=== PATIENT | female | born 1955 | race Caucasian/White ===

== ENCOUNTER 2020-01-27 01:36 | Observation (INO) | payer OTHER, SELFPAY ==
[2020-01-27] VITALS (10 sets, daily range): BP systolic 95–136; BP diastolic 47–72; PULSE 56–88; RESP 14–97; TEMP 35.4–37; O2SAT 94–100; BMI 61.4; BMI 10.0
--- NOTE | ~2020-01-27 | CT_ITS ---
EXAMINATION: CT brain wo con DATE: 01/27/2020 02:11 INDICATION: Fall and weakness TECHNIQUE: Computed tomography (CT) of the head was performed without intravenous contrast. Sagittal and coronal reconstructions were performed. The mA was adjusted according to patient size. Iterative reconstruction technique was employed. The dose-length product was 605.33 mGy-cm. COMPARISON: None FINDINGS: No fracture. There is minimal scattered white matter hypoattenuation consistent with chronic small ve ssel ischemic disease. No acute intracranial hemorrhage, acute infarction or abnormal extra axial fl uid collection. Ventricles are normal and symmetric. No mass/mass effect. The orbits, paranasal sinus es and mastoid air cells are normal. IMPRESSION: 1. Normal aging brain. No fracture or acute intracranial process. Reviewed, dictated and finalized at location A.
--- NOTE | ~2020-01-27 | US_ITS ---
EXAMINATION: US venous doppler [facility] DATE: 01/27/2020 12:42 INDICATION: Bilateral lower limb edema TECHNIQUE: Rojo scale images without and with compression and Doppler images of the bilateral lower e xtremity veins were obtained. COMPARISON: None. FINDINGS: The right common femoral vein, profunda femoral vein, femoral vein, popliteal vein, peroneal trunk, p osterior tibial veins, and greater saphenous vein are patent. The left common femoral vein, profunda femoral vein, femoral vein, popliteal vein, peroneal trunk, po sterior tibial veins, and greater saphenous vein are patent. IMPRESSION: 1. Patent bilateral lower extremity veins. No evidence of deep venous thrombosis. Reviewed, dictated and finalized at location B. IMPRESSION: 1. Patent bilateral lower extremity veins. No evidence of deep venous thrombosi s.
--- NOTE | ~2020-01-27 | XR_ITS ---
EXAMINATION: XR chest 1V portable DATE: 01/27/2020 02:13 INDICATION: Fall and weakness TECHNIQUE: frontal view of the chest was obtained. COMPARISON: None FINDINGS: Small lung volumes more prominently in the right hemithorax where there is elevation of the right hem idiaphragm and bronchovascular crowding at the gabe. No pulmonary edema, pleural effusion or pneumoth orax. Cardiomegaly. IMPRESSION: 1. Small lung volumes more prominent on the right with elevation of the right hemidiaphragm. Reviewed, dictated and finalized at location A. IMPRESSION: 1. Small lung volumes more prominent on the right with elevation of the right h emidiaphragm.
--- NOTE | ~2020-01-27 | US_ITS ---
EXAMINATION: US right upper quadrant DATE: 01/27/2020 13:58 INDICATION: Elevated liver function tests TECHNIQUE: Multiple grayscale and Doppler ultrasound images of the abdomen were obtained. COMPARISON: None available FINDINGS: Bowel gas obscures visualization of the pancreas. The visualized portions of the pancreas a re unremarkable. The liver demonstrates increased echogenicity, heterogenous echotexture, and decreas ed through transmission. A 1.4 cm cyst is noted in the left hepatic lobe. No surface nodularity. Norm al hepatopetal flow in the main portal vein. There is a stone in the nondistended gallbladder. No per icholecystic fluid or gallbladder wall thickening are identified. The normal common bile duct measure s 6 mm. There was no sonographic Baltazar sign. IMPRESSION: 1. Diffuse hepatic steatosis. 2. Cholelithiasis without evidence cholecystitis. Reviewed, dictated and finalized at location B.
--- NOTE | 2020-01-27 01:39 | ED.WEAKNESS ---
HPI - Weakness General Chief complaint: Extremity Injury, Lower Stated complaint: weakness Time Seen by Provider: 01/27/20 01:39 Source: patient Mode of arrival: EMS Limitations: no limitations History of Present Illness HPI Narrative: A 64 y/o female presents to the ED, via EMS, with c/o generalized weakness. Pt states that the generalized weakness that has been progressively ongoing. Patient states she has been using a walker to walk for the past 6 months. She notes that tonight she was in the shower and became extremely weak and lowered herself to the floor. Pt adds that she was on the floor for an hour and could not get up so she called EMS. She denies HI, LOC, cough, CP, SOB, fever, and chills. Pt normally uses uses a walker to ambulate. She has a PMHx of MS and is prescribed Ocrevus. Dr. Kimbrough is her neurologist. Patient is currently receiving injections for her MS with her last injection December 27, 2019. PERRL the the patient has had swelling of the lower extremities over the past 1 year and this progressively worsened. They also state the patient is had progressive decline of her ambulation over the past year with a walker use for the past 6 months. The recently went on FMLA to try to be home to help the patient at home but states he has been having increased difficulty helping her get around. Stated over the past 3 days weakness to appear to have gotten to the point where the patient has been having difficulty ambulating MD Complaint: generalized weakness Onset (ago): day(s) (3) Duration: constant Location: generalized Associated symptoms: denies other symptoms Review of Systems Review of Systems: All systems reviewed & are unremarkable except as noted in HPI and below Constitutional: Constitutional: Denies chills, Denies fever(s) and Reports weakness (generalized) Cardiovascular: Cardiovascular: Denies chest pain Respiratory: Respiratory: Denies cough and Denies dyspnea Neurologic: Denies other (HI, LOC) [facility] Past Medical History Medical History (Updated 01/27/20 @ 05:31 by Jose Raul Garcia DO) Depression HTN (hypertension) Hypothyroid Multiple sclerosis RLS (restless legs syndrome) Sleep apnea Surgical History Surgical History (Updated 01/27/20 @ 01:50 by Allison Haley) Surgical history unknown Social History Social History (Updated 01/27/20 @ 01:50 by Allison Haley) Smoking status: Unknown if ever smoked Gender identity (if verbalized by the patient): Female Exam Narrative: Exam Narrative: APPEARANCE: No acute distress, nontoxic, resting in bed EYES: EOMI HEENT: Normocephalic, atraumatic, OMM RESPIRATORY: No respiratory distress Clear to auscultation bilaterally with no rhonchi wheezing or rales. CARDIOVASCULAR: Regular rate and rhythm without murmurs rubs or gallops. ABDOMINAL: Soft, nontender, nondistended, no rebound or guarding MUSCULOSKELETAl: Moves all extremities. No clubbing, cyanosis 3+ edema of the bilateral lower extremities bilateral dorsalis pedis pulse 2+ NEURO: Awake and alert x 3. Following commands, speech normal, no focal deficits muscle strength 5 out of 5 in bilateral upper extremities and 4-5 in bilateral lower extremities SKIN:: Warm, dry. No rashes lesions or abrasions bilateral venous stasis dermatitis of the bilateral lower anterior shins PSYCHIATRIC: Normal affect/mood, Course Course Emergency Course: Discussed with patient and . They stated that they had discussed about rehab/group home daily spent recently but the patient has been gone on FMLA to try to help the patient at home. The patient has been going to rehab but secondary to the recent covid pandemic up going to rehab. At this time the patient and agree that the patient is not strong enough to ambulate on her own at home and will likely require placement Unable to get up out of bed on her own in ED Discussed with Dr Falk presentation and work-up. Agrees with admission at th
[2020-01-27 02:01] LABS: Basophils Percent Auto 0.3 % (0.2-1.2); Eosinophils Absolute Auto 0.1 K/mm3 (0-0.3); Eosinophils Percent Auto 1.1 % (0-4.4); Hematocrit 42.7 % (37.0-47.0); Hemoglobin 13.3 g/dL (12.0-15.0); Immature Granulocyte Absolute 0.03 K/mm3 (0.00-0.031); Immature Granulocyte Percent A 0.4 % (0-0.5); Immature Platelet Fraction Pct 5.5 % (0.9-11.2); Lymphocytes Absolute Auto 0.61 K/mm3 (0.9-3.2); Lymphocytes Percent Auto 8.6 % (18.3-44.2); Mean Corpuscular HGB Conc 31.1 g/dl (32-36); Mean Corpuscular Hemoglobin 30.6 pg (26-34); Mean Corpuscular Volume 98.2 fl (80-100); Mean Platelet Volume 10.2 fl (7.4-10.4); Monocytes Absolute Auto 0.4 K/mm3 (0.1-0.6); Monocytes Percent Auto 6.1 % (2.6-8.5); Neutrophils Absolute Auto 5.9 K/mm3 (1.3-6.7); Neutrophils Percent Auto 83.5 % (45.5-73.1); Platelet Count Result 143 k/mm3 (150-375); Red Blood Count 4.35 M/mm3 (4.2-5.4); Red Cell Distribution Width 16.5 % (11.5-14.5); White Blood Count 7.1 K/mm3 (4.5-10.0)
[2020-01-27 02:10] LABS: Alanine Aminotransferase 126 U/L (4-35); Albumin Level 4.2 g/dL (3.5-5.1); Alkaline Phosphatase 110 U/L (38-126); Aspartate Amino Transferase 81 U/L (14-36); Bilirubin,Total 0.4 mg/dL (0.2-1.3); Blood Urea Nitrogen 28 mg/dL (7-17); Calcium 9.2 mg/dL (8.4-10.2); Carbon Dioxide 33 mmol/L (22-30); Chloride 97 mmol/L (98-107); Estimated CRCL calculation 95 ml/min; Estimated Glomerular Filt Rate > 60; Glucose 108 mg/dL (65-105); Potassium 4.7 mmol/L (3.4-5.0); Sodium 137 mmol/L (137-145)
[2020-01-27 02:11] LABS: Partial Thromboplastin Time 27.5 SECONDS (22.3-36.8); Prothrombin Time 12.7 Seconds (11.1-14.7)
--- NOTE | 2020-01-27 03:07 | PC.NURSE ---
Assumed care of pt at this time. report from SULLY Miner
[2020-01-27 03:24] LABS: Add Urine Microscopic? YES; Appearance Urine Clear (Clear); Bilirubin Urine Negative (Negative); Blood Urine Negative (Negative); Color Urine Yellow (Yellow); Glucose Urine UA Negative (Negative); Ketones Urine Trace mg/dL (Negative); Leukocyte Esterase Ur Negative LEU/UL (Negative); Mucus Urine Rare /lpf; Nitrate Urine Negative (Negative); Protein Urine 1+ mg/dL (Negative); RBC Urine 0-2 /hpf (0-2); Squamous Epithelial Cell Urine Rare /hpf (Few); WBC Urine 0-3 /hpf
[2020-01-27 04:38] LABS: NT Pro B Type Natriuretic Pept 162 PG/ML (5-100)
--- NOTE | 2020-01-27 04:56 | PC.NURSE ---
Called pt's family member to pickup driver pt states she is on her way.
--- NOTE | 2020-01-27 06:34 | ADMGEN ---
This patient, Tonia Squires, was admitted to Medical Room 347-. Patient/family oriented to hospital policies and general routines including ID bracelet, bed and alarms, visiting hours, pain management, procedures, bathroom and other care routines, personal items, smoking policy, room service/diet, and visiting hours. Valuables list has been completed. Information on how to activate the Rapid Response Team has been discussed. Patient/Family are encouraged to report perceived risks to care and to ask questions if they do not understand what they are told or what they should do.
--- NOTE | 2020-01-27 11:02 | PM.IMHP ---
H&P: HPI History of Present Illness Chief complaint: gait instability,multiple sclerosis Narrative: Tonia Squires is a 64 year old female with PMH significant for secondary progressive multiple sclerosis, morbid obesity, depression, hypertension, hypothyroidism, restless leg syndrome, ROGE, and chronic lower extremity edema. She follows with Dr. Kimbrough, neurologist, for her MS. She is on Ocrevus for her MS. Her last injection was 12/27/19 and she is due for her next injection 06/26/20. She reports progressive weakness over the past 6 months which has required her to use a walker. She notes that her weakness has increased in the past days. She also uses a wheelchair occasionally at home. She reports that she was in the shower and became extremely weak so she lowered herself to the floor slowly. She felt to weak to get up so she and her called EMS. She denies loss of consciousness, head injury, or any other injuries. She denies any traumatic wounds. She denies chest pain, palpitations, cough, SOB, headache, lateralizing weakness, and vision changes. She denies recent sick contacts or travel. She was going to outpatient PT and her was using FMLA to care for her but she reports that he is having difficulty caring for her increasing needs due to her weakness. She also endorses progressive lower extremity edema over the past year due to her reduced mobility. She is prescribed lasix 40mg QD for her edema but reports that she is not taking her lasix as prescribed and only takes it 2x per week. She does not wear compression stockings and keeps her legs in the dependent position frequently. She denies PND and orthopnea. She reports that she uses her CPAP 4x/week. Review of Systems Review of Systems: Narrative: Constitutional: Denies fever, chills, fatigue, and appetite change. Denies recent sick contacts. Eyes: Denies vision change. No additional eye complaints. ENT: Denies change in hearing, nasal congestion, dysphagia, odynophagia, and sore throat. Cardiovascular: Denies palpitations and chest pain. Denies PND and orthopnea. Denies dyspnea on exertion. Respiratory: Denies cough and shortness of breath. Gastrointestinal: Denies abdominal pain, nausea, and vomiting. Denies diarrhea and constipation. Genitourinary: Denies dysuria, frequency, urgency, and hesitancy. Musculoskeletal: Reports generalized lower extremity weakness with her MS. Denies joint pain or swelling. Reports lower extremity edema. Skin: Reports small wound on the left lateral calf. Neurologic: Denies focal weakness, paresthesias, confusion, and speech change. Psychiatric: Denies mood change. Reports depression and takes bupropion for this. Hematologic: Denies easy bruising and bleeding. All systems reviewed & are unremarkable except as noted in HPI and below PMFSH Past Medical History Medical History (Updated 01/27/20 @ 12:50 by Dory Martins PA-C) Depression HTN (hypertension) Hypothyroid Multiple sclerosis RLS (restless legs syndrome) Sleep apnea Surgical History Surgical History (Updated 01/27/20 @ 13:06 by Dory Martins PA-C) H/O section History of tonsillectomy Family History Family History (Updated 01/27/20 @ 11:36 by Dory Martins PA-C) Mother Lung cancer Father Lung cancer Social History Social History (Updated 01/27/20 @ 01:50 by Allison Haley) Smoking status: Never smoker Second hand tobacco smoke exposure: No Alcohol intake: never Substance use: never Gender identity (if verbalized by the patient): Female Spiritual care concerns: No Agree to blood products: Yes Comments Mrs. Squires lives at home with her Dank. She reports that he has been her primary meat and poultry inspector. She reports that she would like him to be her designated POA. She wishes to be a full code. She used to work in pathology at [employer] Home Medications and Allergies Home Medications Medication Instructions Recorded Con
[2020-01-27] MEDS: buPROPion HCL XL (24 HR) 150 MG TABCR PO (12:58)
[2020-01-27] MEDS: FUROSEMIDE 40 MG TABLET PO (12:59)
[2020-01-27] MEDS: LEVOTHYROXINE SODIUM 100 MCG TABLET 200 MCG PO (13:01)
[2020-01-27] MEDS: ENOXAPARIN 40 MG/0.4 ML SYRINGE SUB-Q (22:22)
[2020-01-27] MEDS: PRAMIPEXOLE 1 MG TABLET PO (22:23)
[2020-01-28 05:51] LABS: Basophils Percent Auto 0.2 % (0.2-1.2); Blood Urea Nitrogen 22 mg/dL (7-17); Calcium 8.8 mg/dL (8.4-10.2); Carbon Dioxide 33 mmol/L (22-30); Chloride 98 mmol/L (98-107); Eosinophils Absolute Auto 0.2 K/mm3 (0-0.3); Eosinophils Percent Auto 2.9 % (0-4.4); Estimated CRCL calculation 106 ml/min; Estimated Glomerular Filt Rate > 60; Glucose 104 mg/dL (65-105); Hematocrit 38.3 % (37.0-47.0); Hemoglobin 11.7 g/dL (12.0-15.0); Immature Granulocyte Absolute 0.03 K/mm3 (0.00-0.031); Immature Granulocyte Percent A 0.5 % (0-0.5); Immature Platelet Fraction Pct 6.2 % (0.9-11.2); Lymphocytes Absolute Auto 0.84 K/mm3 (0.9-3.2); Lymphocytes Percent Auto 15.1 % (18.3-44.2); Mean Corpuscular HGB Conc 30.5 g/dl (32-36); Mean Corpuscular Hemoglobin 30.5 pg (26-34); Mean Platelet Volume 11.1 fl (7.4-10.4); Monocytes Absolute Auto 0.4 K/mm3 (0.1-0.6); Monocytes Percent Auto 7.6 % (2.6-8.5); Neutrophils Absolute Auto 4.1 K/mm3 (1.3-6.7); Neutrophils Percent Auto 73.7 % (45.5-73.1); Platelet Count Result 130 k/mm3 (150-375); Potassium 4.2 mmol/L (3.4-5.0); Red Blood Count 3.83 M/mm3 (4.2-5.4); Red Cell Distribution Width 17.5 % (11.5-14.5); Sodium 135 mmol/L (137-145); White Blood Count 5.6 K/mm3 (4.5-10.0)
[2020-01-28 06:00] VITALS: BP 133/64; PULSE 66; RESP 20; TEMP 36.1; O2SAT 95
[2020-01-28 06:41] LABS: Hepatitis B Surface Antigen Negative (Negative)
[2020-01-28 06:47] LABS: HAV RESULT Negative (Negative); Hepatitis B Core IgM Result Negative (Negative)
[2020-01-28] MEDS: LEVOTHYROXINE SODIUM 100 MCG TABLET 200 MCG PO (06:54)
[2020-01-28 06:58] LABS: Hepatitis C Virus Antibody Negative (Negative)
[2020-01-28 08:31] LABS: Alanine Aminotransferase 99 U/L (4-35); Albumin Level 3.4 g/dL (3.5-5.1); Alkaline Phosphatase 85 U/L (38-126); Aspartate Amino Transferase 54 U/L (14-36); Bilirubin,Total 0.2 mg/dL (0.2-1.3); Blood Urea Nitrogen 22 mg/dL (7-17); Carbon Dioxide 35 mmol/L (22-30); Chloride 99 mmol/L (98-107); Estimated CRCL calculation 106 ml/min; Estimated Glomerular Filt Rate > 60; Glucose 107 mg/dL (65-105); Potassium 4.2 mmol/L (3.4-5.0); Sodium 134 mmol/L (137-145)
[2020-01-28] MEDS: FUROSEMIDE 40 MG TABLET PO (09:17)
[2020-01-28] MEDS: buPROPion HCL XL (24 HR) 150 MG TABCR PO (09:17)
[2020-01-28] MEDS: hydroCHLOROthiazide 25 MG TABLET PO (09:18)
[2020-01-28] MEDS: PRAMIPEXOLE 1 MG TABLET PO ×2 (11:39→22:37)
[2020-01-28 13:40] VITALS: BMI 11.0
[2020-01-28 13:45] VITALS: BMI 11.0
[2020-01-28 14:00] VITALS: BP 124/63; PULSE 59; RESP 14; TEMP 36.5; O2SAT 100
[2020-01-28] MEDS: FUROSEMIDE INJ 40 MG/4 ML VIAL 20 MG IV PUSH (15:50)
--- NOTE | 2020-01-28 16:30 | PM.IMPN ---
Progress Note: A&P Assessment and Plan (1) Secondary progressive multiple sclerosis: Code(s): G35 - Multiple sclerosis Status: Acute Assessment and Plan: The pt is established with Dr. Kimbrough. She is on ocrevus injections. Her most recent was 12/27 and her next dose is due 06/26. She reports that her weakness has progressed over the past 6 months and it is becoming difficult for her to care for her. She and her have expressed interest in rehab placement. I discussed her case with Dr. Kimbrough. She does not recommend any additional treatment for her MS including no steroids. Continue follow-up with Dr. Kimbrough outpatient Will continue to work with case management on post-acute discharge PT/OT evaluation (2) Transaminitis: Code(s): R74.0 - Nonspecific elevation of levels of transaminase and lactic acid dehydrogenase [LDH] Status: Acute Assessment and Plan: Pt had elevated AST 54 and ALT 99. Discussed with Dr. Kimbrough, her neurologist, as Ocrevus can cause elevated LFTs. LFTs were normal 12/04 prior to her visit with Dr. Kimbrough. RUQ US revealed diffuse hepatic steatosis and cholelithiasis without cholecystitis. AST and ALT are trending down. She is completely asymptomatic. I suspect nonalcoholic fatty liver disease. AST:ALT ratio is <1. Hepatitis panel is negative. BMI is 61. Recommend lifestyle intervention with weight loss and diet changes as well as better control of hypothyroidism Pt will benefit from platform beater consult Will trend (3) Bilateral edema of lower extremity: Code(s): R60.0 - Localized edema Status: Acute Assessment and Plan: Suspect lymphedema with possible component of chronic venous insufficiency due to morbid obesity and inactivity with dependency. Pt has been noncompliant with her lasix which was prescribed for her leg swelling. Venous doppler was negative for DVT. I suspect that her hypothyroidism is also contributing. Continue compression and elevation Continue PO lasix, will give one time IV dose today. (4) Gait instability: Code(s): R26.81 - Unsteadiness on feet Status: Acute Assessment and Plan: Suspect that this is due to progression of her MS. She reports this has progressed over the past 6 months. She uses a walker and occasionally uses a wheelchair at home for her mobility. PT/OT Pt has expressed interest in rehab placement because it is becoming difficult for her to care for her. Will continue to work with case management on this. (5) Sleep apnea: Code(s): G47.30 - Sleep apnea, unspecified Status: Acute Assessment and Plan: Will order CPAP, titrate to home settings (6) Hypothyroid: Code(s): E03.9 - Hypothyroidism, unspecified Status: Acute Assessment and Plan: TSH 25.1 and free T4 0.4. I had a long discussion with the pt. She has not been taking her levothyroxine. She states that she may take it one to two times per week if she remembers. I will not adjust her dose at this time. I suspect that her hypothyroidism is contributing to her weight gain, weakness, swelling, and edema. Continue levothyroxine 200mcg which pt has not been taking Repeat TSH w/reflex fT4 in 6 weeks outpatient (7) HTN (hypertension): Code(s): I10 - Essential (primary) hypertension Status: Acute Assessment and Plan: Pressures reviewed and at target. Continue HCTZ (8) Depression: Code(s): F32.9 - Major depressive disorder, single episode, unspecified Status: Acute Assessment and Plan: Continue bupropion, discussed with Dr. Kimbrough and the pt is actually taking 300mg PO QD (9) RLS (restless legs syndrome): Code(s): G25.81 - Restless legs syndrome Status: Acute Assessment and Plan: Continue pramipexole (10) DVT prophylaxis: Code(s): Z29.9 - Encounter for prophylactic m
[2020-01-28 21:43] VITALS: BP 122/57; PULSE 71; RESP 18; TEMP 35.9; O2SAT 93
[2020-01-28] MEDS: ENOXAPARIN 40 MG/0.4 ML SYRINGE SUB-Q (21:45)
[2020-01-28 22:30] VITALS: RESP 21
[2020-01-29 06:00] VITALS: BP 139/75; PULSE 95; RESP 18; TEMP 36.1; O2SAT 98
[2020-01-29 06:03] LABS: Hematocrit 39.8 % (37.0-47.0); Hemoglobin 12.4 g/dL (12.0-15.0); Mean Corpuscular HGB Conc 31.2 g/dl (32-36); Mean Corpuscular Hemoglobin 30.6 pg (26-34); Mean Corpuscular Volume 98.3 fl (80-100); Mean Platelet Volume 11.2 fl (7.4-10.4); Platelet Count Result 122 k/mm3 (150-375); Red Blood Count 4.05 M/mm3 (4.2-5.4); Red Cell Distribution Width 17.3 % (11.5-14.5); White Blood Count 5.8 K/mm3 (4.5-10.0)
[2020-01-29] MEDS: LEVOTHYROXINE SODIUM 100 MCG TABLET 200 MCG PO (06:12)
[2020-01-29 06:15] LABS: Alanine Aminotransferase 92 U/L (4-35); Albumin Level 3.7 g/dL (3.5-5.1); Alkaline Phosphatase 96 U/L (38-126); Aspartate Amino Transferase 52 U/L (14-36); Bilirubin,Total 0.4 mg/dL (0.2-1.3); Blood Urea Nitrogen 20 mg/dL (7-17); Calcium 8.9 mg/dL (8.4-10.2); Carbon Dioxide 35 mmol/L (22-30); Chloride 95 mmol/L (98-107); Estimated CRCL calculation 84 ml/min; Estimated Glomerular Filt Rate > 60; Glucose 109 mg/dL (65-105); Magnesium 1.8 mg/dL (1.6-2.3); Potassium 4.2 mmol/L (3.4-5.0); Sodium 135 mmol/L (137-145)
[2020-01-29 08:00] VITALS: BP 132/77; PULSE 69
[2020-01-29] MEDS: FUROSEMIDE 40 MG TABLET PO (08:17)
[2020-01-29] MEDS: hydroCHLOROthiazide 25 MG TABLET PO (08:17)
[2020-01-29] MEDS: buPROPion HCL XL (24 HR) 150 MG TABCR 300 MG PO (09:47)
[2020-01-29] MEDS: PRAMIPEXOLE 1 MG TABLET PO (09:57)
--- NOTE | 2020-01-29 13:35 | PCOTNOTE ---
Pt eating lunch at this time and declined therapy. Will re-attempt at a later time.
--- NOTE | 2020-01-29 13:53 | PM.DS ---
DS: Diagnosis Admitting Diagnosis Admitting Diagnosis: Multiple sclerosis Discharge Diagnosis (1) Secondary progressive multiple sclerosis: Code(s): G35 - Multiple sclerosis Status: Chronic (2) Transaminitis: Code(s): R74.0 - Nonspecific elevation of levels of transaminase and lactic acid dehydrogenase [LDH] Status: Acute Assessment and Plan: (3) Bilateral edema of lower extremity: Code(s): R60.0 - Localized edema Status: Chronic (4) Gait instability: Code(s): R26.81 - Unsteadiness on feet Status: Chronic (5) Sleep apnea: Code(s): G47.30 - Sleep apnea, unspecified Status: Chronic (6) Hypothyroid: Code(s): E03.9 - Hypothyroidism, unspecified Status: Chronic (7) HTN (hypertension): Code(s): I10 - Essential (primary) hypertension Status: Acute (8) Depression: Code(s): F32.9 - Major depressive disorder, single episode, unspecified Status: Acute (9) RLS (restless legs syndrome): Code(s): G25.81 - Restless legs syndrome Status: Chronic DS: Summary Hospital Course Reason for hospitalization: Mrs. Squires is a 64 y.o. female with PMH significant for secondary progressive multiple sclerosis, hypothyroidism, depression, hypertension, restless leg syndrome, morbid obesity, ROGE, and chronic lower extremity edema who presented to the ED with c/o generalized weakness. She called EMS after she fell while her was trying to transfer her. She reported no injuries from her fall and she was gradually lowered to the floor with no LOC or other injuries including no head injury. She states that her weakness has been progressively declining over the past 6 months and it has become difficult for her to ambulate and for her to care for her. Initial workup in the ED revealed unremarkable CBC, CMP with AST 81, ALT 126, ALP 110, CT brain with no acute intracranial abnormality, unremarkable UA, and CXR without acute cardiopulmonary process. She was admitted to the hospitalist service as it was felt that she would require rehab placement since her could no longer care for her with her progressive weakness from her MS. She follows with Dr. Kimbrough, neurologist, for her MS. I called to speak with Dr. Kimbrough about her case as I was concerned about her transaminitis since she is on Ocrevus injections. Her LFTs were normal prior to her last Ocrevus injection in 12/2019. Hepatitis panel was negative, RUQ US revealed diffuse hepatic steatosis with cholelithiasis and no evidence of cholecystitis. Her LFT elevation was felt to be related to nonalcoholic fatty liver disease and I have recommended she have a repeat CMP in 1 week with her PCP to check her LFTs.. Her TSH was significantly elevated at 25 and fT4 was low at 0.4. She endorsed that she was no longer taking her levothyroxine. I spent extensive time talking to her about the importance of taking her levothyroxine to improve her metabolic processes. I discussed that her noncomplaince with levothyroxine is likely contributing to her weakness, leg swelling, weight gain, and depression and that it will take 6 weeks for her levothyroxine to reach steady state. She will need repeat TSH w/reflex to fT4 in 4-6 weeks with her PCP as well. I did not want to adjust her dose of levothyroxine since she was not taking the medication. She also had pitting lower extremity edema endorsed non-compliance with lasix which she was prescribed for her edema. Venous doppler was negative for DVT. She received IV lasix with improvement in her swelling. I encouraged leg elevation and compression stockings as well and discussed that it is very important that she comply with lasix. She was encouraged to continue her CPAP for her ROGE but she did report noncompliance with this as well. I discussed the effects of non-compliance with CPAP therapy. She was encouraged to follow-up outpatient with Dr. Kimbrough for her multiple sclero
[2020-01-29 14:00] VITALS: BP 127/81; PULSE 66; RESP 18; TEMP 35.6; O2SAT 93
--- NOTE | 2020-01-29 14:26 | PCOTNOTE ---
Patient refused treatment after second attempt due to impending discharge, and Pt expressing that she doesn't wish to participate in therapy any longer.
[2020-01-29 15:42] VITALS: BMI 11.0
[2020-01-31 03:15] LABS: GGT 49 U/L (3-65)
== END 2020-01-29 17:16 ==
LOC: ANHED 05:47 → ANH3MED 05:48
PROVIDERS: Physician Assistant; Admitting Provider Internal Medicine; Emergency Provider Emergency Medicine; Visit Provider Internal Medicine
DX: G35 Multiple sclerosis (principal); R74.0 Nonspecific elevation of levels of transaminase and lactic acid dehydrogenase [LDH]; R60.0 Localized edema; R26.81 Unsteadiness on feet; G47.33 Obstructive sleep apnea (adult) (pediatric); E03.9 Hypothyroidism, unspecified; I10 Essential (primary) hypertension; F32.9 Major depressive disorder, single episode, unspecified; G25.81 Restless legs syndrome; E66.01 Morbid (severe) obesity due to excess calories; Z68.44 Body mass index [BMI] 60.0-69.9, adult; K76.0 Fatty (change of) liver, not elsewhere classified; K80.20 Calculus of gallbladder without cholecystitis without obstruction; W19.XXXA Unspecified fall, initial encounter; Z91.14 Patient's other noncompliance with medication regimen; Z91.19 Patient's noncompliance with other medical treatment and regimen; Z99.89 Dependence on other enabling machines and devices; Z28.21 Immunization not carried out because of patient refusal
CPT/HCPCS: 36415; 51701; 70450; 71045; 76705; 80048; 80053; 80074; 81001; 82977; 83735; 83880; 84439; 84443; 85025; 85027; 85055; 85610; 85730; 93970; 96374; 97110; 97161; 97165; 97530; 97535; 99285; A9270; G0378; J1650; J1940

== ENCOUNTER 2021-07-21 18:29 | Inpatient (IN) | payer MEDICARE, SELFPAY ==
--- NOTE | ~2021-07-21 | CT_ITS ---
EXAMINATION: CT brain wo con DATE: 07/21/2021 19:58 INDICATION: Confusion, change in mental status. TECHNIQUE: Computed tomography (CT) of the head was performed without intravenous contrast. The mA wa s adjusted according to patient size. Iterative reconstruction technique was employed. Exam dose: 68 1.00 mGy-cm total exam DLP. COMPARISON: 01/27/2020 CT brain FINDINGS: No intracranial mass lesion or hemorrhage or cerebrovascular accident is detected. No midli ne shift or mass effect. No subdural or epidural hematoma. Normal ventricular size. Mild atherosclero tic cerebral artery calcification. No orbital mass lesion. No skull fracture or bone destruction. Included paranasal sinuses and mastoid air cells are unremarka ble. IMPRESSION: Cerebral atherosclerosis; no acute intracranial finding Reviewed, dictated and finalized at [facility]. Reviewed, dictated and finalized at location [facility].
--- NOTE | ~2021-07-21 | MR_ITS ---
EXAMINATION: MR brain/brain stem wo/w con DATE: 07/22/2021 11:56 INDICATION: Mental status change. TECHNIQUE: Magnetic resonance imaging (MRI) of the brain and brainstem was performed without and with 20 mL MultiHance intravenous contrast. Sequences included sagittal and axial T1-weighted FSE, axial diffusion-weighted FS EPI, axial T2*-weighted GRE, axial T2-weighted FLAIR Propeller, and axial T2-we ighted Propeller. Postcontrast sequences included axial, sagittal, and coronal T1-weighted FSE. Appar ent diffusion coefficient (ADC) maps were created. COMPARISON: Head CT 07/21/2021 FINDINGS: There are scattered areas of nonspecific increased T2-weighted signal intensity in the cere bral white matter and zay. There is no intracranial hemorrhage, acute infarction, or abnormal intrac ranial mass lesion. The ventricles are normal in size. There is mild mucosal thickening in the parana shireen sinuses. The orbits are normal. The mastoid air cells are normal. IMPRESSION: 1. Mild nonspecific cerebral white matter disease and pontine disease, which likely represents chroni c small vessel ischemic disease. Reviewed, dictated and finalized at location [facility]. IMPRESSION: 1. Mild nonspecific cerebral white matter disease and pontine disease, which savanah burr represents chronic small vessel ischemic disease.
--- NOTE | ~2021-07-21 | XR_ITS ---
XR chest 1V portable DATE: 07/21/2021 20:13 INDICATION: Transient alteration of awareness. History of hypertension. TECHNIQUE: Portable supine AP view on 07/21/2021 at 2009 hours COMPARISON: 01/27/2020 AP portable chest FINDINGS: Cardiomegaly. No pulmonary infiltrate or consolidation, pleural effusion or pulmonary vascular congestion or pneumo thorax is evident. IMPRESSION: Cardiomegaly Reviewed, dictated and finalized at location [facility]. IMPRESSION: Cardiomegaly
--- NOTE | ~2021-07-21 | US_ITS ---
EXAMINATION:US venous doppler LE BI INDICATION:Lower extremity edema TECHNIQUE: Multiple grayscale, color flow and Doppler images of the lower extremity deep venous syste ms were obtained and reviewed. COMPARISON:Ultrasound dated 01/27/2020 FINDINGS: The common femoral, superficial femoral and popliteal veins demonstrate normal respiratory variation, augmentation and compressibility. Color flow is also seen within the posterior tibial, pe roneal, greater saphenous and profunda veins. IMPRESSION: 1: No lower extremity deep venous thrombosis. Reviewed, dictated and finalized at location A.
[2021-07-21 18:31] VITALS: BP 119/68; PULSE 50; RESP 20; TEMP 36.1; O2SAT 95
--- NOTE | 2021-07-21 18:40 | ECG_ITS ---
Measurements Intervals [place] Rate: 86 P: [place]: 0 QRS: -16 QRSD: 144 T: 58 QT: 454 QTc: 544 Interpretive Statements ATRIAL FIBRILLATION RIGHT BUNDLE BRANCH BLOCK ABNORMAL ECG Electronically Signed On 07-22-2021 10:34:54 CDT by Miles Saeed D.O.
[2021-07-21 19:39] LABS: Alveolar/Arterial O2 Gradient 8.1 mmHg; Base Excess ABG 4.7 mEq/l (+/-2.0); Fractional Inspired Oxygen 21 %; HCO3 ABG 31.6 mEq/l (22.0-26.0); Oxygen Content ABG 16.6 %vol (16.0-22.0); Oxygen Saturation ABG 93.7 % (95.0-100.0); PCO2 ABG 57.7 mmHg (35.0-45.0); PO2 ABG 72.5 mmHg (80.0-100.0); PO2 FiO2 Ratio Arterial Blood 3.45 %; Total Hemoglobin 12.8 g/dL (12.0-18.0); pH ABG 7.357 (7.350-7.450)
[2021-07-21 19:41] LABS: Device ROOM AIR; Modified Allen's Test Pass; Site Drawn RIGHT RADIAL
[2021-07-21 19:51] LABS: Basophils Percent Auto 0.2 % (0.2-1.2); Eosinophils Absolute Auto 0.1 K/mm3 (0-0.3); Eosinophils Percent Auto 1.4 % (0-4.4); Hematocrit 38.9 % (37.0-47.0); Immature Granulocyte Absolute 0.03 K/mm3 (0.00-0.031); Immature Granulocyte Percent A 0.5 % (0-0.5); Immature Platelet Fraction Pct 9.8 % (0.9-11.2); Lymphocytes Absolute Auto 0.46 K/mm3 (0.9-3.2); Lymphocytes Percent Auto 6.9 % (18.3-44.2); Mean Corpuscular HGB Conc 30.8 g/dl (32-36); Mean Corpuscular Hemoglobin 29.6 pg (26-34); Mean Platelet Volume 10.8 fl (7.4-10.4); Monocytes Absolute Auto 0.3 K/mm3 (0.1-0.6); Neutrophils Absolute Auto 5.7 K/mm3 (1.3-6.7); Platelet Count Result 79 k/mm3 (150-375); Red Blood Count 4.05 M/mm3 (4.2-5.4); Red Cell Distribution Width 16.5 % (11.5-14.5); White Blood Count 6.6 K/mm3 (4.5-10.0)
[2021-07-21 19:59] LABS: Lactic Acid Reflex 1.3 mmol/L (0.7-2.1)
[2021-07-21 20:00] LABS: Alanine Aminotransferase 123 U/L (4-35); Albumin Level 4.1 g/dL (3.5-5.1); Alkaline Phosphatase 120 U/L (38-126); Anion Gap 9 mmol/L (8-16); Aspartate Amino Transferase 69 U/L (14-36); Bilirubin,Total 0.6 mg/dL (0.2-1.3); Blood Urea Nitrogen 42 mg/dL (7-17); Calcium 9.8 mg/dL (8.4-10.2); Carbon Dioxide 33 mmol/L (22-30); Chloride 97 mmol/L (98-107); Estimated CRCL calculation 63 ml/min; Estimated Glomerular Filt Rate 50; Glucose 118 mg/dL (65-110); Potassium 4.1 mmol/L (3.4-5.0); Sodium 139 mmol/L (137-145)
[2021-07-21] MEDS: SODIUM CHLORIDE 0.9% IV 1,000 ML 999 ML IV CONT (20:00)
--- NOTE | 2021-07-21 20:19 | ED.GENADULT ---
HPI - General Adult General Chief complaint: Altered Mental Status Stated complaint: combative Time Seen by Provider: 07/21/21 19:01 History of Present Illness HPI narrative: Patient is a 65-year-old female presents the emergency department with chief complaint of altered mental status. Per the patient's family they have noticed over the last several weeks she has been acting a little strange they noticed that she has been more drowsy and also noticed that she has been having periods where she has been almost combative and also confused and tearing up things in the house. The patient has not had a fever not had a cough the report that she has history of MS and is followed by neurologist at [facility]. The patient is currently not receiving any infusions or injectables for her MS as they noticed the last time that she had a injection therapy she stopped walking and required wheelchair use after that. Today they called EMS this morning after they noticed for 2 days her speech has been more slurred she was initially evaluated by EMS this morning of which she refused transport and later this afternoon they were able to convince her to come to the hospital for evaluation Related Data Home Medications Medication Instructions Recorded Confirmed furosemide 40 mg PO DAILY 01/27/20 07/21/21 hydrochlorothiazide 25 mg PO DAILY 01/27/20 07/21/21 levothyroxine 200 mcg PO DAILY 01/27/20 07/21/21 pramipexole 1 mg PO USEASDIRECTD 01/27/20 07/21/21 escitalopram oxalate 20 mg PO DAILY 07/21/21 07/21/21 rivaroxaban [Xarelto] 2.5 mg PO DAILY 07/21/21 07/21/21 tizanidine 4 mg PO BID 07/21/21 07/21/21 tizanidine 8 mg PO HS 07/21/21 07/21/21 Allergies Allergy/AdvReac Type Severity Reaction Status Date / Time No Known Allergies Allergy Verified 07/21/21 18:41 Review of Systems Review of Systems: A 10 system review of systems was completed on the patient and is negative except for what is stated in the HPI. Nursing and ancillary documentation was reviewed. [facility] Past Medical History Medical History Depression HTN (hypertension) Hypothyroid Multiple sclerosis RLS (restless legs syndrome) Sleep apnea Surgical History Surgical History H/O section History of tonsillectomy Family History Family History Mother Lung cancer Father Lung cancer Social History Social History Smoking status: Never smoker Second hand tobacco smoke exposure: No Alcohol intake: never Substance use: never Gender identity (if verbalized by the patient): Female Spiritual care concerns: No Agree to blood products: Yes Exam Narrative: GENERAL: Well-appearing, well-nourished, and in no acute distress. HEAD: Normocephalic, atraumatic. EYES: PERRLA and EOMI. ENT: Nares clear, no rhinorrhea or epistaxis. Mucous membranes moist. NECK: Supple. CHEST: Clear to auscultation. No respiratory distress. HEART: Regular rate and rhythm. No murmur heard. Normal peripheral pulses. ABDOMEN: Soft, nontender, nondistended, normal active bowel sounds. EXTREMITIES: Normal range of motion. No edema. SKIN: Warm, dry, no rash. NEURO: No focal deficits. Alert and oriented x3. PSYCH: Normal mood and affect. Course Vital Signs Vital signs: Vital Signs Temperature 36.1 C L 07/21/21 18:31 Pulse Rate 50 L 07/21/21 18:31 Respiratory Rate 20 07/21/21 18:31 Blood Pressure 119/68 07/21/21 18:31 Pulse Oximetry 95 07/21/21 18:31 Temperature 36.1 C L 07/21/21 18:31 Pulse Rate 50 L 07/21/21 18:31 Respiratory Rate 20 07/21/21 18:31 Blood Pressure 119/68 07/21/21 18:31 Pulse Oximetry 95 07/21/21 18:31 Medical Decision Making Vital Signs Vital Signs: Vital Signs
[2021-07-21 20:26] LABS: Troponin I < 0.012 ng/mL (0.000-0.034)
[2021-07-21 21:30] LABS: Add Urine Microscopic? YES; Appearance Urine Clear (Clear); Bilirubin Urine Negative (Negative); Blood Urine Negative (Negative); Color Urine Yellow (Yellow); Glucose Urine UA Negative (Negative); Ketones Urine Negative (Negative); Leukocyte Esterase Ur Trace LEU/UL (Negative); Mucus Urine Rare /lpf; Nitrate Urine Negative (Negative); Protein Urine 1+ mg/dL (Negative); RBC Urine 0-2 /hpf (0-2); Specific Grav Ur 1.027 (1.001-1.035); Squamous Epithelial Cell Urine Moderate /hpf (Few)
--- NOTE | 2021-07-21 22:01 | PM.IMHP ---
H&P: HPI History of Present Illness Date/Time: 07/21/21 22:01 Chief Complaint: Altered mental status Narrative: This is a 65-year-old female with past medical history significant for MS, patient is currently wheelchair-bound and up with assist, obstructive sleep apnea on CPAP at nighttime. Patient was brought to the emergency room after her have noticed a change in her mentation this has been going on and off for the last 2 weeks she has been having hallucinations but has been worse today she wears her CPAP mask on an off, her also noticed rigors but did not check her temperature, notice that her appetite has not been good as of the last 3 days or so, was very confused today and hallucinating, then he decided to bring her to the emergency room. Preliminary workup in emergency room for the most part was unrevealing. CT of the head with no acute abnormalities. BMP and CBC at patient's baseline an ABG showed a pH of 7.35 with a pCO2 57 PO2 of 72. A chest x-ray was significant for cardiomegaly. At the time of my visit patient was able to answer some questions. Patient has been placed in observation. Review of Systems Review of Systems: ROS unobtainable: Yes unobtainable due to mental status (Confusion) PMFSH Past Medical History Medical History Depression HTN (hypertension) Hypothyroid Multiple sclerosis RLS (restless legs syndrome) Sleep apnea Surgical History Surgical History H/O section History of tonsillectomy Family History Family History Mother Lung cancer Father Lung cancer Social History Social History Smoking status: Never smoker Second hand tobacco smoke exposure: No Alcohol intake: never Substance use: never Gender identity (if verbalized by the patient): Female Spiritual care concerns: No Agree to blood products: Yes Meds Home Medications and Allergies Home Medications Medication Instructions Recorded Confirmed Type furosemide 40 mg PO DAILY 01/27/20 07/22/21 History hydrochlorothiazide 25 mg PO DAILY 01/27/20 07/22/21 History levothyroxine 200 mcg PO DAILY 01/27/20 07/22/21 History pramipexole 1 mg PO USEASDIRECTD 01/27/20 07/22/21 History escitalopram oxalate 20 mg PO DAILY 07/21/21 07/22/21 History rivaroxaban [Xarelto] 2.5 mg PO DAILY 07/21/21 07/22/21 History tizanidine 4 mg PO BID 07/21/21 07/22/21 History tizanidine 8 mg PO HS 07/21/21 07/22/21 History Allergies Allergy/AdvReac Type Severity Reaction Status Date / Time No Known Allergies Allergy Verified 07/21/21 23:58 Vital Signs Vital Signs - 24 hr 07/21/21 18:31 Temperature 97.0 F L Pulse Rate 50 L Respiratory Rate 20 Blood Pressure 119/68 Pulse Oximetry 95 Exam Const: General: comfortable, no acute distress, well developed, confusion and ill appearing chronically Nutritional Appearance: obese morbidly obese Orientation/consciousness: oriented to person and oriented to place HENMT: Head: normal to inspection, normocephalic and atraumatic Ears: hearing grossly normal bilaterally General nose exam: Normal external nose present Face and sinus: normal facial exam Eyes: General: appearance normal, both eyes and all related structures Alignment and Position: alignment normal Sclera: sclerae normal Pupils: Equal, round and reactive pupils present EOM: EOMs intact bilaterally Neck: Neck: normal visual inspection, full ROM, no lymphadenopathy, supple and no JVD Thyroid: thyroid normal Lymphatic: no lymphadenopathy noted Resp: Effort & Inspection: normal respiratory effort and able to speak in complete sentences Auscultation: clear to auscultation bilaterally, no crackles, no rales, no rhonchi and no wheezes Cardio: Jugular venous dist
[2021-07-21 23:01] VITALS: BP 126/68; PULSE 77; RESP 20; O2SAT 97
[2021-07-21 23:14] LABS: Troponin I < 0.012 ng/mL (0.000-0.034)
[2021-07-21 23:33] VITALS: BP 124/68; PULSE 88; RESP 22; TEMP 36.9; O2SAT 98
[2021-07-21 23:35] VITALS: BP 127/57; PULSE 82; RESP 18; TEMP 36.6; O2SAT 97
[2021-07-21 23:41] VITALS: BMI 59.1
[2021-07-22] MEDS: SODIUM CHLORIDE 0.9% IV 1,000 ML 125 ML IV CONT ×2 (00:14→09:55)
[2021-07-22] MEDS: WATER FOR IRRIGATION, STERILE 1,000 ML BOTTLE 1000 ML (02:02)
--- NOTE | 2021-07-22 05:28 | PC.NURSE ---
This patient, Tonia Squires, was admitted to 3 [facility] Surg Room 313-01@23:35 on 07/21. Patient/family oriented to hospital policies and general routines including ID bracelet, bed and alarms, visiting hours, pain management, procedures, bathroom and other care routines, personal items, smoking policy, room service/diet, and visiting hours. Information on how to activate the Rapid Response Team has been discussed. Patient/Family are encouraged to report perceived risks to care and to ask questions if they do not understand what they are told or what they should do.
[2021-07-22 06:00] VITALS: BP 117/60; PULSE 76; RESP 20; TEMP 36.6; O2SAT 97
[2021-07-22] MEDS: LEVOTHYROXINE SODIUM 100 MCG TABLET 200 MCG PO (06:32)
[2021-07-22 06:40] LABS: Basophils Percent Auto 0.2 % (0.2-1.2); Eosinophils Absolute Auto 0.1 K/mm3 (0-0.3); Eosinophils Percent Auto 1.9 % (0-4.4); Hemoglobin 11.7 g/dL (12.0-15.0); Immature Granulocyte Absolute 0.03 K/mm3 (0.00-0.031); Immature Granulocyte Percent A 0.6 % (0-0.5); Lymphocytes Absolute Auto 0.41 K/mm3 (0.9-3.2); Lymphocytes Percent Auto 7.8 % (18.3-44.2); Mean Corpuscular HGB Conc 30.8 g/dl (32-36); Mean Corpuscular Hemoglobin 29.8 pg (26-34); Mean Corpuscular Volume 96.9 fl (80-100); Mean Platelet Volume 11.9 fl (7.4-10.4); Monocytes Absolute Auto 0.3 K/mm3 (0.1-0.6); Monocytes Percent Auto 5.3 % (2.6-8.5); Neutrophils Absolute Auto 4.4 K/mm3 (1.3-6.7); Neutrophils Percent Auto 84.2 % (45.5-73.1); Platelet Count Result 76 k/mm3 (150-375); Red Blood Count 3.92 M/mm3 (4.2-5.4); Red Cell Distribution Width 16.7 % (11.5-14.5); White Blood Count 5.3 K/mm3 (4.5-10.0)
[2021-07-22 06:47] LABS: Anion Gap 5 mmol/L (8-16); Blood Urea Nitrogen 37 mg/dL (7-17); Calcium 9.1 mg/dL (8.4-10.2); Carbon Dioxide 33 mmol/L (22-30); Chloride 100 mmol/L (98-107); Estimated CRCL calculation 78 ml/min; Estimated Glomerular Filt Rate > 60; Glucose 96 mg/dL (65-110); Potassium 4.2 mmol/L (3.4-5.0); Sodium 138 mmol/L (137-145)
[2021-07-22 08:00] VITALS: PULSE 76; RESP 20; O2SAT 97
--- NOTE | 2021-07-22 09:18 | PM.IMPN ---
Progress Note: A&P Assessment and Plan (1) Multiple sclerosis: Code(s): G35 - Multiple sclerosis Status: Acute (2) Sleep apnea: Code(s): G47.30 - Sleep apnea, unspecified Status: Chronic (3) Altered mental status: Code(s): R41.82 - Altered mental status, unspecified Status: Acute (4) Urinary tract infection: Code(s): N39.0 - Urinary tract infection, site not specified Status: Acute (5) Bilateral edema of lower extremity: Code(s): R60.0 - Localized edema Status: Chronic (6) RLS (restless legs syndrome): Code(s): G25.81 - Restless legs syndrome Status: Chronic (7) Atrial fibrillation: Code(s): I48.91 - Unspecified atrial fibrillation Status: Acute Additional Plan 65yo lady with ams likely related to UTI. CT showing cerebral atherosclerosis and no acute changes. MRI pending. Pt on CTX, and gentle hydration. Urine culture pending. further reversible workup pending with B12, folate, TSH and RPR Breathing well on RA - cardiomegaly on cxr, cautious rehydration in light of infection, consider echo to eval underlying CHF. Continue CPAP for ROGE at night. Time Spent With Patient Time with patient: less than 15 minutes Subjective Date/time seen: 07/22/21 09:18 no acute complaints resting comfrotably Review of Systems Review of Systems: All systems reviewed & are unremarkable except as noted in HPI and below Exam Neck: Neck: no JVD Resp: Effort & Inspection: normal respiratory effort Auscultation: clear to auscultation bilaterally Cardio: Rate: regular rate Rhythm: regular rhythm GI: GI Palp: Yes Soft to palpation and No Tenderness to palpation present (GI) Objective Data Vital Signs Vital Signs: Vital Signs - 24 hr 07/21/21 18:31 07/21/21 23:01 07/21/21 23:33 Temperature 97.0 F L 98.4 F Pulse Rate 50 L 77 88 Respiratory Rate 20 20 22 H Blood Pressure 119/68 126/68 124/68 Pulse Oximetry 95 97 98 07/21/21 23:35 07/22/21 06:00 Temperature 97.9 F 97.9 F Pulse Rate 82 76 Respiratory Rate 18 20 Blood Pressure 127/57 L 117/60 Pulse Oximetry 97 97 Intake/Output Intake/Output: Intake & Output 07/19/21 07/20/21 07/21/21 07/22/21 23:59 23:59 23:59 23:59 Intake Total 1050 240 Output Total 150 250 Balance 900 -10 Meds/Results Medications: Active Medications Generic Name Dose Route Start Last Admin Trade Name Freq PRN Reason Stop Dose Admin Hydrochlorothiazide 25 mg 07/22/21 09:00 Hydrochlorothiazide 25 Mg Tablet PO DAILY [facility] Ceftriaxone Sodium/Dextrose 1 gm in 50 mls @ 100 mls/hr 07/22/21 21:00 Rocephin 1 Gm/D5w 50 Ml IVPB Q24H HELLEN Sodium Chloride 1,000 mls @ 125 mls/hr 07/21/21 21:55 07/22/21 00:14 Normal Saline Iv IV CONT 125 mls/hr .Q8H HELLEN Administration Levothyroxine Sodium 200 mcg 07/22/21 06:30 07/22/21 06:32 Levothyroxine Sodium 100 Mcg Tablet PO 200 mcg DAILY@0630 [facility] Administration Ondansetron HCl 4 mg 07/21/21 21:51 Ondansetron Inj 4 Mg/2 Ml Vial IV PUSH Q4H PRN Nausea Pramipexole Dihydrochloride 2 mg 07/22/21 12:00 Pramipexole 1 Mg Tablet PO DAILY@1200 [facility] Pramipexole Dihydrochloride 1 mg 07/22/21 09:00 Pramipexole 1 Mg Tablet PO Q12HR [facility] Rivaroxaban 2.5 mg 07/22/21 09:00 Rivaroxaban 2.5 Mg Tablet PO DAILY [facility] Radiology Results: ITS Impressions Head CT 07/21/21 20:05 IMPRESSION: Cerebral atherosclerosis; no acute intracranial finding Chest X-Ray 07/21/21 20:14 IMPRESSION: Cardiomegaly Labs Labs: Laboratory Results - last 24 hr 07/21/21 07/21/21 07/21/21 19:36 19:43 19:44 WBC 6.6 RBC 4.05 L Hgb 12.0 Hct 38.9 MCV 96.0 MCH 29.6 MCHC 30.8 L RDW 16.5 H Plt Count 79 L MPV 10.8 H Immature Gran % (Auto) 0.5 Neut % (Auto) 86.0 H Lymph % (Auto) 6.9 L Izard % (Auto) 5.0 Eos % (Auto) 1.4 Baso % (
[2021-07-22] MEDS: hydroCHLOROthiazide 25 MG TABLET PO (09:56)
[2021-07-22] MEDS: PRAMIPEXOLE 1 MG TABLET PO ×2 (09:56→20:32)
[2021-07-22] MEDS: LORazepam (*CRX) 0.5 MG TABLET PO (10:49)
[2021-07-22] MEDS: RIVAROXABAN 2.5 MG TABLET PO (10:49)
[2021-07-22] MEDS: PRAMIPEXOLE 1 MG TABLET 2 MG PO (12:40)
[2021-07-22 14:00] VITALS: BP 112/56; PULSE 70; RESP 18; TEMP 35.7; O2SAT 96
[2021-07-22 17:05] LABS: Ammonia < 9 umol/L (9-30)
[2021-07-22 18:16] LABS: Folic Acid > 20.0 ng/mL (2.76->20); Vitamin B12 > 1000.0 pg/mL (239-931)
[2021-07-22 22:00] VITALS: BP 121/42; PULSE 66; RESP 18; TEMP 35.8; O2SAT 96
--- NOTE | 2021-07-23 | ECHOL_ITS ---
Patient Info Name: Tonia Squires Age: 65 years : 1955 Gender: Female Ht: 63 in Wt: 333 lbs BSA: 2.70 m2 HR: 78 bpm BP: 130 / 68 mmHg Heart Rhythm: Sinus Rhythm Technical Quality: Good Exam Date: 07/23/2021 12:51 PM Exam Location: [facility] Room: [facility] Patient Status: Inpatient Admit Date: 07/22/2021 Staff Ordering Physician: Ramu Yeh MD Laminator: Jody Dhillon RDCS Attending Provider: Radha Rodriguez PA-C Exam Type: CA echo doppler color flow Study Info Indications - CARDIOMEGALY Complete two-dimensional, color flow and Doppler transthoracic echocardiogram is performed. Summary 1. Complete two-dimensional, color flow and Doppler transthoracic echocardiogram is performed. 2. Atrial septal aneurysm. Consider bubble study if clinically indicated. 3. Left ventricular chamber dimension is mildly enlarged. 4. Left ventricular systolic function is normal, estimated at 60-65%. 5. Left ventricular septal wall motion is abnormal with septal motion related to bundle branch block. 6. There is moderate tricuspid valve regurgitation. 7. Moderate pulmonary hypertension, estimated pulmonary arterial systolic pressure is 56 mmHg. Left Ventricle Left ventricular chamber dimension is mildly enlarged. Left ventricular systolic function is normal, estimated at 60-65%. There is no increased left ventricular wall thickness. Left ventricular septal wall motion is abnormal with septal motion related to bundle branch block. The left ventricular diastolic function is grade I diastolic dysfunction. Right Ventricle Right ventricular chamber dimension is normal. Right ventricular systolic function is normal. Left Atria Left atrial chamber dimension is mildly enlarged. Right Atria Right atrial chamber dimension is normal. Atrial Septum Atrial septal aneurysm. Consider bubble study if clinically indicated. Aortic Valve Aortic valve is not well visualized. The aortic valve is not well visualized. There is no aortic valve stenosis. There is no aortic valve regurgitation. Pulmonic Valve The pulmonic valve is not well visualized. There is trace pulmonic regurgitation. Mitral Valve The mitral valve has thickened leaflets. There is mild mitral valve regurgitation. The mitral valve annulus is mildly calcified. Tricuspid Valve The tricuspid valve leaflets are normal. There is moderate tricuspid valve regurgitation. Moderate pulmonary hypertension, estimated pulmonary arterial systolic pressure is 56 mmHg. Pericardium/Pleural The pericardium appears normal. There is no pericardial effusion. Inferior Vena Cava Normal inferior vena cava with <50% collapse upon inspiration consistent with elevated right atrial pressure, 10 mmHg. Aorta The aortic root size at the sinus of Valsalva is normal. There is mild aortic atherosclerosis. Left Ventricular Outflow Tract Name Value Normal LVOT 2D LVOT Diameter 2.0 cm LVOT Doppler LVOT Peak Gradient 6 mmHg LVOT Mean Gradient 3 mmHg LVOT VTI
[2021-07-23] MEDS: LEVOTHYROXINE SODIUM 100 MCG TABLET 200 MCG PO (05:48)
[2021-07-23] MEDS: SODIUM CHLORIDE 0.9% IV 1,000 ML 50 ML IV CONT (05:50)
[2021-07-23 06:00] VITALS: BP 130/68; PULSE 70; RESP 18; TEMP 35.6; O2SAT 96
[2021-07-23 06:27] LABS: Basophils Percent Auto 0.3 % (0.2-1.2); Eosinophils Absolute Auto 0.1 K/mm3 (0-0.3); Eosinophils Percent Auto 2.1 % (0-4.4); Hematocrit 38.4 % (37.0-47.0); Hemoglobin 11.7 g/dL (12.0-15.0); Immature Granulocyte Absolute 0.03 K/mm3 (0.00-0.031); Immature Granulocyte Percent A 0.5 % (0-0.5); Lymphocytes Absolute Auto 0.53 K/mm3 (0.9-3.2); Lymphocytes Percent Auto 8.7 % (18.3-44.2); Mean Corpuscular HGB Conc 30.5 g/dl (32-36); Mean Corpuscular Hemoglobin 29.5 pg (26-34); Mean Platelet Volume 11.7 fl (7.4-10.4); Monocytes Absolute Auto 0.3 K/mm3 (0.1-0.6); Monocytes Percent Auto 5.6 % (2.6-8.5); Neutrophils Absolute Auto 5.1 K/mm3 (1.3-6.7); Neutrophils Percent Auto 82.8 % (45.5-73.1); Nucleated Red Blood Cells Perc 0.5 % (0.0-0.2); Platelet Count Result 77 k/mm3 (150-375); Red Blood Count 3.96 M/mm3 (4.2-5.4); White Blood Count 6.1 K/mm3 (4.5-10.0)
[2021-07-23 06:41] LABS: Alanine Aminotransferase 104 U/L (4-35); Albumin Level 3.8 g/dL (3.5-5.1); Alkaline Phosphatase 114 U/L (38-126); Anion Gap 6 mmol/L (8-16); Aspartate Amino Transferase 56 U/L (14-36); Bilirubin,Total 0.6 mg/dL (0.2-1.3); Blood Urea Nitrogen 26 mg/dL (7-17); Calcium 9.2 mg/dL (8.4-10.2); Carbon Dioxide 32 mmol/L (22-30); Chloride 98 mmol/L (98-107); Estimated CRCL calculation 78 ml/min; Estimated Glomerular Filt Rate > 60; Glucose 66 mg/dL (65-110); Magnesium 1.7 mg/dL (1.6-2.3); Phosphorus 3.1 mg/dL (2.5-4.5); Potassium 4.1 mmol/L (3.4-5.0); Sodium 136 mmol/L (137-145)
[2021-07-23] MEDS: PRAMIPEXOLE 1 MG TABLET PO ×2 (08:30→20:31)
[2021-07-23] MEDS: hydroCHLOROthiazide 25 MG TABLET PO (08:30)
[2021-07-23] MEDS: RIVAROXABAN 2.5 MG TABLET PO (08:30)
[2021-07-23 10:08] LABS: Rapid Plasma Reagin Non-Reactive (NonReactive)
--- NOTE | 2021-07-23 11:40 | PM.IMPN ---
Progress Note: A&P Assessment and Plan (1) Altered mental status: Code(s): R41.82 - Altered mental status, unspecified Status: Acute Assessment and Plan: Resolving. Reportedly was acting confused and combative prior to presentation per family. Suspect related to UTI vs hypercarbia/hypoxemia from untreated ROGE. She is A&O x4 today. 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 No acute findings. TSH, B12, folate, and ammonia within normal limits. RPR pending. Continue hydration with gentle IV fluids and treatment for UTI as described below ABG with elevated pCO2 and mild hypoxemia. Continue with CPAP at night and with naps every single time. Resume CPAP or consider BiPAP if she were to become confused again. She is maintaining adequate oxygenation on room air at this time. (2) Urinary tract infection: Code(s): N39.0 - Urinary tract infection, site not specified Status: Acute Assessment and Plan: UA slightly abnormal on presentation. She denies symptoms today. Continue with IV Rocephin for empiric coverage Urine culture pending. Await results and tailor antibiotics accordingly (3) Sleep apnea: Code(s): G47.30 - Sleep apnea, unspecified Status: Chronic Assessment and Plan: It seems as though she is not 100% compliant with her CPAP. Likely resulting in hypercarbia as above CPAP should be worn 100% of the time when sleeping or with naps Echo has been ordered (4) Bilateral edema of lower extremity: Code(s): R60.0 - Localized edema Status: Chronic Assessment and Plan: 2+ edema of bilateral lower extremities. Likely dependent edema as patient is essentially immobile Will check a venous Doppler to rule out DVT, though less likely as patient is on Xarelto for history of DVT. Unclear if she remains compliant with this. Possibly due to volume overload. Cardiomegaly noted on CXR. Echo is pending. Supportive care. Elevate extremities (5) Multiple sclerosis: Code(s): G35 - Multiple sclerosis Status: Acute Assessment and Plan: No acute flare. She has been untreated for over 1 year but reports she has remained stable with no progression. She stopped taking her medication because she read somewhere that there was no benefit for anybody over age 65. She does have an appointment with a neurologist in 1 month to reestablish care and resume treatment regimen. (6) Atrial fibrillation: Code(s): I48.91 - Unspecified atrial fibrillation Status: Acute Assessment and Plan: Rate is controlled. Continue Xarelto Monitor heart rate Additional Plan Tolnaftate powder for maceration of bilateral popliteal fossa skin folds MiraLax and Colace for constipation Subjective Date/time seen: 07/23/21 11:40 Interval history: Date of service: 07/23/2021 Tonia Squires is a 65-year-old female with hypertension, hypothyroidism, restless leg syndrome, sleep apnea on CPAP, and multiple sclerosis untreated for >1 year who is seen in follow-up for altered mental status and suspected UTI. She is doing okay today. She is concerned because she has not been out of bed. She tells me she cannot walk and typically uses a wheelchair to get around. She feels constipated and has not had a bowel movement in 4 days. Her abdomen feels bloated and she reports some cramping. She has still been eating well. She denies dysuria, hematuria, urgency, frequency. She tells me she thinks she has cellulitis on both of her legs and think she has had this for a long time but has talked to her doctor and they were not concerned for cellulitis. She also notes itching in the bilateral popliteal fossa. She has not been on treatment for her MS for over a year. She denies any visual changes. She does endorse increased
[2021-07-23] MEDS: DOCUSATE SODIUM 100 MG CAPSULE PO ×2 (13:28→20:31)
[2021-07-23] MEDS: polyethylene glycoL 3350 17 GM POWD.PACK PO (13:28)
[2021-07-23] MEDS: PRAMIPEXOLE 1 MG TABLET 2 MG PO (13:28)
[2021-07-23] MEDS: TOLNAFTATE 1% POWDER 45 GM BTL 1 APPLIC TOPICAL ×2 (13:29→20:32)
[2021-07-23 14:00] VITALS: BP 133/69; PULSE 73; RESP 20; TEMP 36.4; O2SAT 95
[2021-07-23] MEDS: BISACODYL 5 MG TABLET EC PO (20:30)
[2021-07-23 21:52] VITALS: BP 131/63; PULSE 79; RESP 20; TEMP 36.7; O2SAT 96
--- NOTE | 2021-07-23 23:40 | PC.NURSE ---
Spoke to patient and Dank about using the sit to stand (Donna plus) to attempt to get her to the bathroom or commode. She said she was uncomfortable with this and refused at this time. But we have had no luck with the bedpan... She is more fixated on needing a bath than having a bowel movement at this time. Will talk to day nurse about getting PT/OT ordered.
[2021-07-24] MEDS: SODIUM CHLORIDE 0.9% IV 1,000 ML 50 ML IV CONT (03:35)
--- NOTE | 2021-07-24 05:08 | PC.NURSE ---
patient received full bed bath on 07/24 overnight. No BM. Belly feels tight and is distended. Bladder scanned and she has <100 in bladder.
[2021-07-24 05:41] VITALS: BP 147/75; PULSE 69; RESP 20; TEMP 36.7; O2SAT 98
[2021-07-24 06:22] LABS: Hematocrit 39.9 % (37.0-47.0); Hemoglobin 12.1 g/dL (12.0-15.0); Immature Platelet Fraction Pct 11.9 % (0.9-11.2); Mean Corpuscular HGB Conc 30.3 g/dl (32-36); Mean Corpuscular Hemoglobin 29.4 pg (26-34); Mean Corpuscular Volume 97.1 fl (80-100); Mean Platelet Volume 11.3 fl (7.4-10.4); Platelet Count Result 78 k/mm3 (150-375); Red Blood Count 4.11 M/mm3 (4.2-5.4); White Blood Count 6.5 K/mm3 (4.5-10.0)
[2021-07-24] MEDS: LEVOTHYROXINE SODIUM 100 MCG TABLET 200 MCG PO (06:30)
[2021-07-24 06:45] LABS: Anion Gap 10 mmol/L (8-16); Blood Urea Nitrogen 22 mg/dL (7-17); Calcium 9.2 mg/dL (8.4-10.2); Carbon Dioxide 29 mmol/L (22-30); Chloride 97 mmol/L (98-107); Estimated CRCL calculation 78 ml/min; Estimated Glomerular Filt Rate > 60; Glucose 52 mg/dL (65-110); Potassium 4.1 mmol/L (3.4-5.0); Sodium 136 mmol/L (137-145)
[2021-07-24 06:47] LABS: NT Pro B Type Natriuretic Pept 1080 pg/mL (5-100)
[2021-07-24 07:42] LABS: Glucose Point of Care 84 mg/dl (65-105)
[2021-07-24 08:00] VITALS: PULSE 69; RESP 20; O2SAT 98
[2021-07-24] MEDS: PRAMIPEXOLE 1 MG TABLET PO ×2 (08:30→21:40)
[2021-07-24] MEDS: hydroCHLOROthiazide 25 MG TABLET PO (08:30)
[2021-07-24] MEDS: RIVAROXABAN 2.5 MG TABLET PO (08:31)
[2021-07-24] MEDS: TOLNAFTATE 1% POWDER 45 GM BTL 1 APPLIC TOPICAL ×2 (08:31→21:40)
[2021-07-24 08:45] LABS: Glucose Point of Care 69 mg/dl (65-105)
[2021-07-24 09:51] LABS: Glucose Point of Care 116 mg/dl (65-105)
[2021-07-24] MEDS: PRAMIPEXOLE 1 MG TABLET 2 MG PO (12:28)
[2021-07-24 14:00] VITALS: BP 147/69; PULSE 64; RESP 15; TEMP 36.8; O2SAT 95
[2021-07-24 14:28] VITALS: O2SAT 98
--- NOTE | 2021-07-24 15:43 | P.PNIM_ITS ---
Progress Note: A&P Assessment and Plan (1) Altered mental status: Code(s): R41.82 - Altered mental status, unspecified Status: Acute Assessment and Plan: Resolving. Reportedly was acting confused and combative prior to presentation per family. Suspect related to hypercarbia/hypoxemia from untreated ROGE. UTI ruled out. She is A&O x4 today. 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 No acute findings. * TSH, B12, folate, and ammonia within normal limits. RPR nonreactive. * ABG with elevated pCO2 and mild hypoxemia. Continue with CPAP at night and with naps every single time. Resume CPAP or consider BiPAP if she were to become confused again. She is maintaining adequate oxygenation on room air at this time. (2) Urinary tract infection: Code(s): N39.0 - Urinary tract infection, site not specified Status: Acute Assessment and Plan: UA slightly abnormal on presentation but she is asymptomatic. * Discontinue IV Rocephin given negative urine culture (3) Sleep apnea: Code(s): G47.30 - Sleep apnea, unspecified Status: Chronic Assessment and Plan: It seems as though she is not always compliant with her CPAP. * Inadequate treatment of ROGE likely resulting in hypercarbia as above * CPAP should be worn 100% of the time when sleeping or with naps. Educated her on importance of this. * Echo completed with moderate pulmonary hypertension (4) Diastolic dysfunction: Code(s): I51.89 - Other ill-defined heart diseases Status: Acute Assessment and Plan: Echo performed on 07/23/2021 which showed grade 1 diastolic dysfunction with EF of 60-65%. BNP is 1000. * Avoid further IV fluids. * Resume lasix 20 mg BID. * Monitor volume status closely * Heart healthy diet. (5) Hypoglycemia: Code(s): E16.2 - Hypoglycemia, unspecified Status: Acute Assessment and Plan: Glucose 52 this morning. Resolved promptly after eating breakfast up to 116. She was asymptomatic. * She is not on insulin or oral hypoglycemic agents. No history of diabetes. * She has had poor PO intake and this likely contributed * Encourage PO intake * She should be offered a snack tonight before bed * Hypoglycemic protocol in place. Monitor Accu-Cheks ACHS (6) Atrial fibrillation: Code(s): I48.91 - Unspecified atrial fibrillation Status: Acute Assessment and Plan: Rate is controlled. * Continue Xarelto * Monitor heart rate (7) Bilateral edema of lower extremity: Code(s): R60.0 - Localized edema Status: Chronic Assessment and Plan: 2+ edema of bilateral lower extremities. * Likely dependent edema as patient is essentially immobile * Bilateral venous Doppler negative for DVT * Grade 1 diastolic dysfunction noted on echocardiogram which may be contributing * Supportive care. Elevate extremities (8) Multiple sclerosis: Code(s): G35 - Multiple sclerosis Status: Acute Assessment and Plan: No acute flare. She has been untreated for over 1 year but reports she has remained stable with no progression. She stopped taking her medication because she read somewhere that there was no benefit for anybody over age 65. * She does have an appointment with a neurologist in 1 month to reestablish care and resume treatment regimen. (9) Thrombocytop
--- NOTE | 2021-07-24 15:43 | PM.IMPN ---
Progress Note: A&P Assessment and Plan (1) Altered mental status: Code(s): R41.82 - Altered mental status, unspecified Status: Acute Assessment and Plan: Resolving. Reportedly was acting confused and combative prior to presentation per family. Suspect related to hypercarbia/hypoxemia from untreated ROGE. UTI ruled out. She is A&O x4 today. CT showed cerebral atherosclerosis with no acute changes MRI showed mild nonspecific cerebral white matter disease risk control representative of small vessel ischemic disease. No acute findings. TSH, B12, folate, and ammonia within normal limits. RPR nonreactive. ABG with elevated pCO2 and mild hypoxemia. Continue with CPAP at night and with naps every single time. Resume CPAP or consider BiPAP if she were to become confused again. She is maintaining adequate oxygenation on room air at this time. (2) Urinary tract infection: Code(s): N39.0 - Urinary tract infection, site not specified Status: Acute Assessment and Plan: UA slightly abnormal on presentation but she is asymptomatic. Discontinue IV Rocephin given negative urine culture (3) Sleep apnea: Code(s): G47.30 - Sleep apnea, unspecified Status: Chronic Assessment and Plan: It seems as though she is not always compliant with her CPAP. Inadequate treatment of ROGE likely resulting in hypercarbia as above CPAP should be worn 100% of the time when sleeping or with naps. Educated her on importance of this. Echo completed with moderate pulmonary hypertension (4) Diastolic dysfunction: Code(s): I51.89 - Other ill-defined heart diseases Status: Acute Assessment and Plan: Echo performed on 07/23/2021 which showed grade 1 diastolic dysfunction with EF of 60-65%. BNP is 1000. Avoid further IV fluids. Resume lasix 20 mg BID. Monitor volume status closely Heart healthy diet. (5) Hypoglycemia: Code(s): E16.2 - Hypoglycemia, unspecified Status: Acute Assessment and Plan: Glucose 52 this morning. Resolved promptly after eating breakfast up to 116. She was asymptomatic. She is not on insulin or oral hypoglycemic agents. No history of diabetes. She has had poor PO intake and this likely contributed Encourage PO intake She should be offered a snack tonight before bed Hypoglycemic protocol in place. Monitor Accu-Cheks ACHS (6) Atrial fibrillation: Code(s): I48.91 - Unspecified atrial fibrillation Status: Acute Assessment and Plan: Rate is controlled. Continue Xarelto Monitor heart rate (7) Bilateral edema of lower extremity: Code(s): R60.0 - Localized edema Status: Chronic Assessment and Plan: 2+ edema of bilateral lower extremities. Likely dependent edema as patient is essentially immobile Bilateral venous Doppler negative for DVT Grade 1 diastolic dysfunction noted on echocardiogram which may be contributing Supportive care. Elevate extremities (8) Multiple sclerosis: Code(s): G35 - Multiple sclerosis Status: Acute Assessment and Plan: No acute flare. She has been untreated for over 1 year but reports she has remained stable with no progression. She stopped taking her medication because she read somewhere that there was no benefit for anybody over age 65. She does have an appointment with a neurologist in 1 month to reestablish care and resume treatment regimen. (9) Thrombocytopenia: Code(s): D69.6 - Thrombocytopenia, unspecified Status: Acute Assessment and Plan: Noted to be mildly low since January 2020. Platelet count 70530 today Monitor CBC daily Subjective Date/time seen: 07/24/21 15:43 Interval history: Date of service: 07/24/2021 Tonia Squires is a 65-year-old female with hypertension, hypothyroidism, restless leg syndrome, sleep apnea on CPAP, and multiple sclerosis untreated for >1 year who is s
[2021-07-24 16:54] LABS: Glucose Point of Care 71 mg/dl (65-105)
[2021-07-24] MEDS: FUROSEMIDE 20 MG TABLET PO (19:29)
[2021-07-24 21:45] LABS: Glucose Point of Care 76 mg/dl (65-105)
[2021-07-24 21:48] VITALS: BP 127/75; PULSE 65; RESP 20; TEMP 36.7; O2SAT 94
[2021-07-24 22:30] VITALS: PULSE 63; O2SAT 95
[2021-07-25 01:35] VITALS: PULSE 69; O2SAT 93
[2021-07-25 05:31] VITALS: BP 138/55; PULSE 67; RESP 20; TEMP 36.8; O2SAT 97
[2021-07-25] MEDS: LEVOTHYROXINE SODIUM 100 MCG TABLET 200 MCG PO (06:32)
[2021-07-25 06:53] LABS: Hematocrit 38.8 % (37.0-47.0); Hemoglobin 12.2 g/dL (12.0-15.0); Immature Platelet Fraction Pct 10.9 % (0.9-11.2); Mean Corpuscular HGB Conc 31.4 g/dl (32-36); Mean Corpuscular Hemoglobin 29.9 pg (26-34); Mean Corpuscular Volume 95.1 fl (80-100); Mean Platelet Volume 11.3 fl (7.4-10.4); Platelet Count Result 82 k/mm3 (150-375); Red Blood Count 4.08 M/mm3 (4.2-5.4); Red Cell Distribution Width 16.9 % (11.5-14.5); White Blood Count 6.9 K/mm3 (4.5-10.0)
[2021-07-25 08:13] LABS: Glucose Point of Care 71 mg/dl (65-105)
[2021-07-25] MEDS: FUROSEMIDE 20 MG TABLET PO (09:37)
[2021-07-25] MEDS: TOLNAFTATE 1% POWDER 45 GM BTL 1 APPLIC TOPICAL (09:37)
[2021-07-25] MEDS: PRAMIPEXOLE 1 MG TABLET PO (09:37)
[2021-07-25] MEDS: hydroCHLOROthiazide 25 MG TABLET PO (09:37)
[2021-07-25] MEDS: RIVAROXABAN 2.5 MG TABLET PO (09:37)
[2021-07-25] MEDS: PRAMIPEXOLE 1 MG TABLET 2 MG PO (11:23)
--- NOTE | 2021-07-25 11:57 | P.DS_ITS ---
DS: Admitting Diagnosis Discharge Date 07/25/2021 Admitting Diagnosis Altered mental status DS: Discharge Diagnosis Discharge Diagnosis (1) Altered mental status: Code(s): R41.82 - Altered mental status, unspecified Status: Acute Assessment and Plan: Resolved. Reportedly was acting confused and combative prior to presentation per family. Suspect related to hypercarbia/hypoxemia from untreated ROGE. UTI ruled out. She was A&O x4 on my encounters. * CT showed cerebral atherosclerosis with no acute changes * MRI showed mild nonspecific cerebral white matter disease direct customer service representative of small vessel ischemic disease. No acute findings. * TSH, B12, folate, and ammonia within normal limits. RPR nonreactive. * ABG with elevated pCO2 and mild hypoxemia; likely the cause for confusion. Continue with CPAP at night and with naps every single time. (2) Sleep apnea: Code(s): G47.30 - Sleep apnea, unspecified Status: Chronic Assessment and Plan: It seems as though she is not always compliant with her CPAP. * Inadequate treatment of ROGE likely resulting in hypercarbia and confusion as above * CPAP should be worn 100% of the time when sleeping or with naps. Educated her on importance of this. * Echo completed with moderate pulmonary hypertension (3) Urinary tract infection: Code(s): N39.0 - Urinary tract infection, site not specified Status: Acute Assessment and Plan: Ruled out. UA slightly abnormal on presentation but she was asymptomatic. * IV Rocephin discontinued on 07/24 given negative urine culture (4) Diastolic dysfunction: Code(s): I51.89 - Other ill-defined heart diseases Status: Acute Assessment and Plan: Echo performed on 07/23/2021 which showed grade 1 diastolic dysfunction with EF of 60-65%. BNP 1000. Cardiomegaly noted on CXR. * Continue Lasix 20 mg BID. * Monitor volume status closely * Heart healthy diet. (5) Hypoglycemia: Code(s): E16.2 - Hypoglycemia, unspecified Status: Acute Assessment and Plan: She had an episode of hypoglycemia on 07/24/2021 with glucose of 52. Resolved promptly after eating breakfast up to 116. She was asymptomatic. * She is not on insulin or oral hypoglycemic agents. No history of diabetes. * She did endorse poor PO intake and this was likely the cause * Adequate p.o. intake encouraged. Discussed having small snacks throughout the day and dietary education provided. * Hypoglycemic protocol in place during hospitalization. No further episodes of hypoglycemia. (6) Atrial fibrillation: Code(s): I48.91 - Unspecified atrial fibrillation Status: Acute Assessment and Plan: Rate remained controlled. * Continue Xarelto (7) Bilateral edema of lower extremity: Code(s): R60.0 - Localized edema Status: Chronic Assessment and Plan: 1-2+ edema of bilateral lower extremities. * Likely dependent edema as patient is essentially immobile * Bilateral venous Doppler negative for DVT * Grade 1 diastolic dysfunction noted on echocardiogram which may be contributing * Supportive care. Elevate extremities (8) Multiple sclerosis: Code(s): G35 - Multiple sclerosis Status: Acute Assessment and Plan: No acute flare. She has been untreated for over 1 year but reports she has remained stable with no progression. She stopped taking her medication because she read somewhere that there was no benefit for any
--- NOTE | 2021-07-25 11:57 | PM.DS ---
DS: Admitting Diagnosis Discharge Date 07/25/2021 Admitting Diagnosis Altered mental status DS: Discharge Diagnosis Discharge Diagnosis (1) Altered mental status: Code(s): R41.82 - Altered mental status, unspecified Status: Acute Assessment and Plan: Resolved. Reportedly was acting confused and combative prior to presentation per family. Suspect related to hypercarbia/hypoxemia from untreated ROGE. UTI ruled out. She was A&O x4 on my encounters. CT showed cerebral atherosclerosis with no acute changes MRI showed mild nonspecific cerebral white matter disease phone representative of small vessel ischemic disease. No acute findings. TSH, B12, folate, and ammonia within normal limits. RPR nonreactive. ABG with elevated pCO2 and mild hypoxemia; likely the cause for confusion. Continue with CPAP at night and with naps every single time. (2) Sleep apnea: Code(s): G47.30 - Sleep apnea, unspecified Status: Chronic Assessment and Plan: It seems as though she is not always compliant with her CPAP. Inadequate treatment of ROGE likely resulting in hypercarbia and confusion as above CPAP should be worn 100% of the time when sleeping or with naps. Educated her on importance of this. Echo completed with moderate pulmonary hypertension (3) Urinary tract infection: Code(s): N39.0 - Urinary tract infection, site not specified Status: Acute Assessment and Plan: Ruled out. UA slightly abnormal on presentation but she was asymptomatic. IV Rocephin discontinued on 07/24 given negative urine culture (4) Diastolic dysfunction: Code(s): I51.89 - Other ill-defined heart diseases Status: Acute Assessment and Plan: Echo performed on 07/23/2021 which showed grade 1 diastolic dysfunction with EF of 60-65%. BNP 1000. Cardiomegaly noted on CXR. Continue Lasix 20 mg BID. Monitor volume status closely Heart healthy diet. (5) Hypoglycemia: Code(s): E16.2 - Hypoglycemia, unspecified Status: Acute Assessment and Plan: She had an episode of hypoglycemia on 07/24/2021 with glucose of 52. Resolved promptly after eating breakfast up to 116. She was asymptomatic. She is not on insulin or oral hypoglycemic agents. No history of diabetes. She did endorse poor PO intake and this was likely the cause Adequate p.o. intake encouraged. Discussed having small snacks throughout the day and dietary education provided. Hypoglycemic protocol in place during hospitalization. No further episodes of hypoglycemia. (6) Atrial fibrillation: Code(s): I48.91 - Unspecified atrial fibrillation Status: Acute Assessment and Plan: Rate remained controlled. Continue Xarelto (7) Bilateral edema of lower extremity: Code(s): R60.0 - Localized edema Status: Chronic Assessment and Plan: 1-2+ edema of bilateral lower extremities. Likely dependent edema as patient is essentially immobile Bilateral venous Doppler negative for DVT Grade 1 diastolic dysfunction noted on echocardiogram which may be contributing Supportive care. Elevate extremities (8) Multiple sclerosis: Code(s): G35 - Multiple sclerosis Status: Acute Assessment and Plan: No acute flare. She has been untreated for over 1 year but reports she has remained stable with no progression. She stopped taking her medication because she read somewhere that there was no benefit for anybody over age 65. She does have an appointment with a neurologist in 1 month to reestablish care and resume treatment regimen. Urged her to attend this appointment and resume treatment She is wheelchair-bound due to weakness from MS (9) Thrombocytopenia: Code(s): D69.6 - Thrombocytopenia, unspecified Status: Acute Assessment and Plan: Noted to be mildly low since January 2020. CBC monitored daily and did slowly improve F
[2021-07-25 12:07] LABS: Glucose Point of Care 68 mg/dl (65-105)
--- NOTE | 2021-07-25 14:37 | PCPTNOTE ---
Pt discharged home prior to eval being done.
--- NOTE | 2021-07-25 15:34 | PC.NURSE ---
On 07/25/21, the student, Cherie Gregory, provided care and [facility]. I have reviewed the student's documentation and agree with the findings.
== END 2021-07-25 14:30 | disposition home health service (06) | DRG 154 ==
LOC: ANHED 20:02 → ANH3MEDSUR 22:50
PROVIDERS: Emergency Medicine; Internal Medicine; Admitting Provider Internal Medicine; Emergency Provider Emergency Medicine; PCP Family Medicine; Visit Provider Physician Assistant
DX: G47.33 Obstructive sleep apnea (adult) (pediatric) (principal); J96.01 Acute respiratory failure with hypoxia; J96.02 Acute respiratory failure with hypercapnia; Z68.43 Body mass index [BMI] 50.0-59.9, adult; I51.89 Other ill-defined heart diseases; E16.2 Hypoglycemia, unspecified; I48.91 Unspecified atrial fibrillation; R60.0 Localized edema; G35 Multiple sclerosis; D69.6 Thrombocytopenia, unspecified; I10 Essential (primary) hypertension; E03.9 Hypothyroidism, unspecified; G25.81 Restless legs syndrome; F32.9 Major depressive disorder, single episode, unspecified; E66.01 Morbid (severe) obesity due to excess calories; Z99.3 Dependence on wheelchair; G62.9 Polyneuropathy, unspecified; Z91.19 Patient's noncompliance with other medical treatment and regimen
CPT/HCPCS: 36415; 36600; 51701; 70450; 70553; 71045; 80048; 80053; 81001; 82140; 82607; 82746; 82805; 82948; 83605; 83735; 83880; 84100; 84443; 84484; 85025; 85027; 85055; 86592; 87086; 93005; 93308; 93970; 96361; 96365; 99285; A9270; A9577; G0378; J0696; J7030

== ENCOUNTER 2021-07-30 14:29 | Emergency (ER) | payer MEDICARE, SELFPAY ==
--- NOTE | 2021-07-30 14:36 | ECG_ITS ---
Measurements Intervals [place] Rate: 65 P: 74 TX: 170 QRS: -21 QRSD: 138 T: 24 QT: 476 QTc: 497 Interpretive Statements SINUS RHYTHM RIGHT BUNDLE BRANCH BLOCK LOW VOLTAGE- PRECORDIAL LEADS BASELINE ARTIFACT- I, II, III, AVR, AVL, AVF, V1-V6 ABNORMAL ECG Electronically Signed On 07-30-2021 15:35:49 CDT by Miles Saeed D.O.
[2021-07-30 14:38] VITALS: BP 149/78; PULSE 59; RESP 18; TEMP 37; O2SAT 95
[2021-07-30 15:22] LABS: Alanine Aminotransferase 85 U/L (4-35); Albumin Level 4.8 g/dL (3.5-5.1); Alkaline Phosphatase 136 U/L (38-126); Anion Gap 8 mmol/L (8-16); Aspartate Amino Transferase 57 U/L (14-36); Bilirubin,Total 0.6 mg/dL (0.2-1.3); Blood Urea Nitrogen 27 mg/dL (7-17); Calcium 11.2 mg/dL (8.4-10.2); Carbon Dioxide 37 mmol/L (22-30); Chloride 94 mmol/L (98-107); Estimated CRCL calculation 68 ml/min; Estimated Glomerular Filt Rate 55; Glucose 112 mg/dL (65-110); Potassium 4.1 mmol/L (3.4-5.0); Sodium 139 mmol/L (137-145)
[2021-07-30 15:27] LABS: INR 0.9; Prothrombin Time 12.3 Seconds (11.1-14.7)
[2021-07-30 15:27] LABS: Basophils Percent Auto 0.2 % (0.2-1.2); Eosinophils Absolute Auto 0.1 K/mm3 (0-0.3); Eosinophils Percent Auto 1.6 % (0-4.4); Hematocrit 43.3 % (37.0-47.0); Hemoglobin 13.7 g/dL (12.0-15.0); Immature Granulocyte Absolute 0.06 K/mm3 (0.00-0.031); Immature Granulocyte Percent A 1.2 % (0-0.5); Immature Platelet Fraction Pct 11.2 % (0.9-11.2); Lymphocytes Absolute Auto 0.61 K/mm3 (0.9-3.2); Lymphocytes Percent Auto 12.4 % (18.3-44.2); Mean Corpuscular HGB Conc 31.6 g/dl (32-36); Mean Corpuscular Hemoglobin 30.2 pg (26-34); Mean Corpuscular Volume 95.4 fl (80-100); Mean Platelet Volume 11.4 fl (7.4-10.4); Monocytes Absolute Auto 0.3 K/mm3 (0.1-0.6); Monocytes Percent Auto 5.3 % (2.6-8.5); Neutrophils Absolute Auto 3.9 K/mm3 (1.3-6.7); Neutrophils Percent Auto 79.3 % (45.5-73.1); Platelet Count Result 98 k/mm3 (150-375); Red Blood Count 4.54 M/mm3 (4.2-5.4); Red Cell Distribution Width 17.2 % (11.5-14.5); White Blood Count 4.9 K/mm3 (4.5-10.0)
--- NOTE | 2021-07-30 17:53 | ED.GENADULT ---
HPI - General Adult General Chief complaint: Altered Mental Status Stated complaint: AMS Time Seen by Provider: 07/30/21 17:33 Source: patient and family Limitations: clinical condition History of Present Illness HPI narrative: Patient is 65 years old white female brought to the emergency room by her because of confusion. Patient currently patient is awake and alert and oriented x3, does not remember the year. Patient denying any symptoms at this time. The is telling me that patient was hospitalized few days ago and was confused at that time and was treated for urinary tract infection got antibiotic IV, no antibiotic at the time of discharge the confusion was resolved. 2 days ago the confusion is back again. History of MS, patient is not vaccinated for COVID-19. Patient is wheelchair-bound. And currently full code. The is telling me that patient was started on Xarelto months ago for lower extremity deep vein thrombosis. Been having intermittent vaginal bleeding since. Related Data Home Medications Medication Instructions Recorded Confirmed furosemide 20 mg PO BID 01/27/20 07/22/21 hydrochlorothiazide 25 mg PO DAILY 01/27/20 07/22/21 levothyroxine 200 mcg PO DAILY 01/27/20 07/22/21 pramipexole 1 mg PO USEASDIRECTD 01/27/20 07/22/21 Xarelto 1.25 mg PO BID 07/21/21 07/22/21 escitalopram oxalate 20 mg PO DAILY 07/21/21 07/22/21 tizanidine 4 mg PO BID 07/21/21 07/22/21 tizanidine 8 mg PO HS 07/21/21 07/22/21 trazodone 50 mg PO HS 07/22/21 07/22/21 Allergies Allergy/AdvReac Type Severity Reaction Status Date / Time No Known Allergies Allergy Verified 07/21/21 23:58 Review of Systems Review of Systems: ROS unobtainable: Yes unobtainable due to medical condition PMFSH Past Medical History Medical History Depression HTN (hypertension) Hypothyroid Multiple sclerosis RLS (restless legs syndrome) Sleep apnea Surgical History Surgical History H/O section History of tonsillectomy Family History Family History Mother Lung cancer Father Lung cancer Social History Social History Smoking status: Never smoker Second hand tobacco smoke exposure: No Alcohol intake: never Substance use: never Gender identity (if verbalized by the patient): Female Spiritual care concerns: No Agree to blood products: Yes Exam Narrative: General appearance: Well-developed, well-nourished, morbidly obese, does not look in pain or distress, patient sitting on a chair and able to stand up without 4 assistance. Skin: Normal color Head: Normocephalic, nontraumatic Eyes: Clear conjunctiva ENT: Oropharynx normal, ears normal, nose normal Neck: Supple, nontender Chest and respiratory: Airway patent, no respiratory distress, no accessory muscle use Heart: Regular rate/rhythm Abdomen: Soft, nontender, no organomegaly, quiet bowel sounds Vascular: Normal peripheral pulses, normal capillary refill. Musculoskeletal: Normal range of motion, unable to stand up from sitting position Neurologic: Alert and oriented ?3, BRIM STITCHER is normal as tested, no gross motor deficit Course Course Emergency Course: Stable Consultations Consultation #1: Dr. Santoro, [employer], recommended that the patient can follow-up as outpatient. Dr. Santoro was informed that the patient is morbidly obese, history of MS, wheelchair-bound, and need at least 4 assistant basketball coach to take the standing position.. Date: 07/30/21 Time: 20:03 Consultation #2: Dr. Weller Date
[2021-07-30 18:04] VITALS: BP 147/69; PULSE 88; RESP 16; O2SAT 100
[2021-07-30 18:57] LABS: Add Urine Microscopic? YES; Appearance Urine Clear (Clear); Bilirubin Urine Negative (Negative); Blood Urine 3+ (Negative); Color Urine Yellow (Yellow); Glucose Urine UA Negative (Negative); Ketones Urine Negative (Negative); Leukocyte Esterase Ur Negative LEU/UL (Negative); Nitrate Urine Negative (Negative); Protein Urine 1+ mg/dL (Negative); RBC Urine >75 /hpf (0-2); Specific Grav Ur 1.017 (1.001-1.035); Squamous Epithelial Cell Urine Few /hpf (Few); Urobilinogen Urine Negative mg/dL (<2.0)
--- NOTE | 2021-07-30 21:29 | WPDCN ---
Assessment and Plan Assessment and plan (1) Abnormal vaginal bleeding: Code(s): N93.9 - Abnormal uterine and vaginal bleeding, unspecified Status: Inactive Assessment and Plan: patient with AUB likely secondary to anticoagulation patient asleep and unable to be easily aroused physical exam deferred recommend further evaluation with pelvic US prior to exam (due to limited mobility, recommend completing full exam afterwards so that pap smear and EMB may be performed at same time) unable to obtain US overnight, recommend providing /patient with outpatient requisition after completion of US, will proceed with physical exam, pap smear, and EMB, which may be performed as outpatient in office Hgb stable so no acute network announcer interventions necessary at this time 's (Dank) cell phone number: [phone] Thank you for allowing me to participate in the care of this patient. HPI Data of Consult Date/Time: 07/30/21 21:29 Primary Care Provider: Omi Weller MD Consult Narrative Narrative: Tonia Squires is a 65 year old female who presented to the emergency department for evaluation of altered mental status. History obtained by as patient was asleep and unable to be easily awakened and aroused. Consult requested due to history of vaginal bleeding. Per patient's , patient was started on Xarelto a few years ago for treatment of a DVT. Shortly thereafter, patient began to experience intermittent vaginal bleeding. Patient was told that vaginal bleeding was likely due to Xarelto and was instructed to adjust the dose of medication whenever she experienced vaginal bleeding. She has experienced intermittent episodes of vaginal bleeding since starting the Xarelto and per , has noticed some bleeding for the past week. He states that bleeding is not heavy and is only a little bit on a paper towel that she places in her underwear and on toilet tissue after wiping. has known patient since 2014 and ever since knowing her, to his knowledge, patient has not seen a card dealer or had a network announcer exam. He does recall taking patient for a mammogram approximately 3-4 years ago. Patient is currently wheelchair-bound due to history of MS. [facility] Past Medical History Medical History Depression HTN (hypertension) Hypothyroid Multiple sclerosis RLS (restless legs syndrome) Sleep apnea Surgical History Surgical History H/O section History of tonsillectomy Family History Family History Mother Lung cancer Father Lung cancer Social History Social History Smoking status: Never smoker Second hand tobacco smoke exposure: No Alcohol intake: never Substance use: never Gender identity (if verbalized by the patient): Female Spiritual care concerns: No Agree to blood products: Yes Meds Home Medications and Allergies Home Medications Medication Instructions Recorded Confirmed Type furosemide 20 mg PO BID 01/27/20 07/22/21 History hydrochlorothiazide 25 mg PO DAILY 01/27/20 07/22/21 History levothyroxine 200 mcg PO DAILY 01/27/20 07/22/21 History pramipexole 1 mg PO USEASDIRECTD 01/27/20 07/22/21 History Xarelto 1.25 mg PO BID 07/21/21 07/22/21 History escitalopram oxalate 20 mg PO DAILY 07/21/21 07/22/21 History tizanidine 4 mg PO BID 07/21/21 07/22/21 History tizanidine 8 mg PO HS 07/21/21 07/22/21 History trazodone 50 mg PO HS 07/22/21 07/22/21 History tolnaftate 1 applic TOPICAL Q12HR #45 g 07/25/21 Rx Allergies Allergy/AdvReac Type Severity Reaction Status Date / Time No Known Allergies Allergy Verified 07/21/21 23:58 Vital Signs Vital Signs - 24 hr 07/30/21 14:38 07/30/21 18:04 Temperature 37.0 C Pulse Rate 59 L 88 Respiratory Rate 18 16 Bl
[2021-07-30 21:39] VITALS: BP 149/85; PULSE 63; RESP 16; O2SAT 100
[2021-07-31 02:49] VITALS: BP 150/80; PULSE 100; RESP 20; O2SAT 98
== END 2021-07-31 02:30 | disposition home or self-care (01) ==
PROVIDERS: Emergency Medicine; Emergency Provider Emergency Medicine; PCP Family Medicine
DX: R41.0 Disorientation, unspecified (principal); N93.9 Abnormal uterine and vaginal bleeding, unspecified; E66.01 Morbid (severe) obesity due to excess calories; Z68.43 Body mass index [BMI] 50.0-59.9, adult; G35 Multiple sclerosis; F32.9 Major depressive disorder, single episode, unspecified; I10 Essential (primary) hypertension; E03.9 Hypothyroidism, unspecified; G25.81 Restless legs syndrome; G47.30 Sleep apnea, unspecified; Z86.718 Personal history of other venous thrombosis and embolism; Z79.01 Long term (current) use of anticoagulants; Z99.3 Dependence on wheelchair; I45.10 Unspecified right bundle-branch block
CPT/HCPCS: 36415; 51701; 80053; 81001; 85025; 85055; 85610; 85730; 93005; 99284

== ENCOUNTER 2024-03-11 18:36 | Inpatient (IN) | payer MEDICARE, SELFPAY ==
[2024-03-11] VITALS (15 sets, daily range): BP systolic 86–112; BP diastolic 52–78; PULSE 34–82; RESP 11–19; TEMP 36.6–36.8; O2SAT 90–100; BMI 47.7
--- NOTE | ~2024-03-11 | XR_ITS ---
EXAMINATION: XR chest 1V portable DATE: 03/12/2024 12:38 INDICATION: Cough. TECHNIQUE: A single frontal view of the chest was obtained. COMPARISON: Chest single view 07/21/2021 FINDINGS: There is no pneumonia, pleural effusion, or pneumothorax. Cardiomegaly is noted. There is a prominent left pericardial fat pad. IMPRESSION: 1. Cardiomegaly. Reviewed, dictated and finalized at location A. IMPRESSION: 1. Cardiomegaly.
--- NOTE | 2024-03-11 18:47 | ECG_ITS ---
SEE SCANNED COPY FOR CONFIRMED REPORT MTDD
--- NOTE | 2024-03-11 18:52 | ED.WEAKNESS ---
HPI - Weakness General Chief complaint: Overdose Stated complaint: LETHARGIC & DROWSY S/P Rx MEDS Time Seen by Provider: 03/11/24 18:48 History of Present Illness HPI Narrative: Pt just had tinazadine dose increased from 1 mg to 4 mg but she forgot. Pt took 1 this morning at 100 and 2 pills at 4 pm and then felt very drowsy and weak and called 911. Pt says she had not intention to harm herself, she just fogot they dose was changes. Pt Bp was low on EMS arrival. Pt getting 500 ml bolus and BP improved Related Data Home Medications Medication Instructions Recorded Confirmed furosemide 40 mg tablet 20 mg PO BID 01/27/20 03/11/24 levothyroxine 200 mcg tablet 200 mcg PO DAILY 01/27/20 03/11/24 pramipexole 1 mg tablet 1 mg PO USEASDIRECTD 01/27/20 03/11/24 escitalopram oxalate 20 mg tablet 20 mg PO DAILY 07/21/21 03/11/24 tizanidine 4 mg tablet 4 mg PO BID PRN muscle cramp 07/21/21 03/11/24 trazodone 50 mg tablet 50 mg PO HS PRN Insomnia 07/22/21 03/11/24 lisinopril 20 mg tablet 20 mg PO DAILY 03/11/24 03/11/24 nystatin 100,000 unit/gram topical See Rx Instructions .Route .COMPLEX 03/11/24 03/11/24 powder olanzapine 5 mg tablet 5 mg PO HS 03/11/24 03/11/24 Allergies Allergy/AdvReac Type Severity Reaction Status Date / Time No Known Allergies Allergy Verified 07/21/21 23:58 Review of Systems Review of Systems: All systems reviewed & are unremarkable except as noted in HPI and below PMFSH Past Medical History Medical History Depression HTN (hypertension) Hypothyroid Multiple sclerosis RLS (restless legs syndrome) Sleep apnea Surgical History Surgical History H/O section History of tonsillectomy Family History Family History Mother Lung cancer Father Lung cancer Social History Social History Smoking status: Never smoker Second hand tobacco smoke exposure: No Alcohol intake: never Substance use: never Gender identity (if verbalized by the patient): Female Spiritual care concerns: No Agree to blood products: Yes Exam Const: General: healthy appearing and no acute distress Nutritional Appearance: well nourished Orientation/consciousness: patient oriented x3 Limitations: no limitations Other: a bit drowsy HENMT: Head: normal to inspection Mouth: Yes Normal oral and palatal mucosa present Eyes: Conjunctivae: conjunctivae normal Pupils: Equal, round and reactive pupils present EOM: EOMs intact bilaterally Neck: Neck: normal visual inspection, no lymphadenopathy and no meningeal signs Resp: Effort & Inspection: normal respiratory effort Auscultation: clear to auscultation bilaterally Cardio: Rate: bradycardic Rhythm: regular rhythm GI: GI Palp: Yes Soft to palpation and No Tenderness to palpation present (GI) Auscultation: normal bowel sounds Skin: General skin exam: normal color Wounds: no wounds Neuro: General: patient oriented x3, moves all extremities and no focal motor deficits Cranial nerves: Yes Nystagmus not present Extrem: General: normal to inspection and no clubbing, cyanosis or edema Psych: Mental Status: mental status grossly normal Affect: normal affect Attitude: cooperative Course Vital Signs Vital signs: Vital Signs Temperature 97.8 F 03/11/24 18:38 Pulse Rate 53 L 03/11/24 18:38 Respiratory Rate 14 03/11/24 18:38 Blood Pressure 112/60 03/11/24 18:38 Pulse Oximetry 97 03/11/24 18:38 Oxygen Delivery Room Air 03/11/24 18:38 Temperature 97.8 F 03/11/24 18:38 Pulse Rate 56 L 03/11/24 21:38 Respiratory Rate 11 L 03/11/24 21:43 Blood Pressure 98/64 L 03/11/24 21:38 Pulse Oximetry 100 03/11/24 21:38 Oxygen Delivery Room Air 03/11/24 20:37 Oxygen Flow Rate 2 03/11/24 20:37 MDM - Weak
[2024-03-11 18:56] LABS: Hematocrit 32.9 % (37.0-47.0); Immature Platelet Fraction Pct 5.1 % (0.9-11.2); Mean Corpuscular HGB Conc 30.4 g/dl (32-36); Mean Corpuscular Volume 101.9 fl (80-100); Mean Platelet Volume 10.2 fl (7.4-10.4); Platelet Count Result 87 k/mm3 (150-375); Red Blood Count 3.23 M/mm3 (4.2-5.4); Red Cell Distribution Width 15.9 % (11.5-14.5); White Blood Count 4.9 K/mm3 (4.5-10.0)
[2024-03-11 19:03] LABS: Alanine Aminotransferase 26 U/L (6-35); Alkaline Phosphatase 147 U/L (38-126); Anion Gap 6 mmol/L (4-12); Aspartate Amino Transferase 35 U/L (14-36); Bilirubin,Total 0.6 mg/dL (0.2-1.3); Blood Urea Nitrogen 38 mg/dL (7-17); Calcium 10.2 mg/dL (8.4-10.2); Carbon Dioxide 29 mmol/L (22-30); Chloride 106 mmol/L (98-107); Estimated CRCL calculation 46 ml/min; Estimated Glomerular Filt Rate 41; Glucose 92 mg/dL (65-110); Potassium 4.2 mmol/L (3.4-5.0); Sodium 141 mmol/L (137-145)
[2024-03-11] MEDS: SODIUM CHLORIDE 0.9% IV 1,000 ML 999 ML IV CONT (19:21)
[2024-03-11] MEDS: ATROPINE SULFATE 1 MG/10 ML SYRINGE IV PUSH (19:25)
[2024-03-11 19:31] LABS: Band Neutrophils Percent 6 % (0-6); Eosinophils Absolute Manual 0.04 K/mm3 (0.02-0.50); Eosinophils Percent Manual 1 % (0-4); Lymphocytes Absolute Manual 0.98 K/mm3 (1.1-4.5); Lymphocytes Percent Manual 20 % (18-44); Monocytes Absolute Manual 0.14 K/mm3 (0.1-0.90); Monocytes Percent Manual 3 % (3-9); Neutrophils Absolute Manual 3.72 K/mm3 (1.7-7.2); Neutrophils Percent Manual 70 % (46-73); Platelet Estimate Decreased (Adequate); Total Cells Counted 100
[2024-03-11 19:32] LABS: Anisocytosis 1+; Hypochromasia 1+; Ovalocytes 1+; Schistocytes None Seen
[2024-03-11] MEDS: ATROPINE SULFATE 1 MG/ML VIAL IV PUSH (20:08)
--- NOTE | 2024-03-11 20:54 | PM.IMHP ---
H&P: HPI History of Present Illness Date/Time: 03/11/24 20:54 Chief Complaint: accidental OD Narrative: THIS IS A 68-YEAR-OLD FEMALE WITH PAST MEDICAL HISTORY SIGNIFICANT FOR MS, RESTLESS LEG SYNDROME, SLEEP APNEA ON CPAP AT NIGHTTIME, HYPERTENSION, DEPRESSION, HYPOTHYROIDISM, MORBID OBESITY, PATIENT IS WHEELCHAIR-BOUND ABLE TO TRANSFER BY STAND ASSIST DEVICE. WAS BROUGHT TO THE EMERGENCY ROOM AFTER ACCIDENTALLY TAKING EXTRA DOSE OF HER TIZANIDINE PATIENT WAS FEELING DRAW CE AND WEAK FOUND TO BE BRADYCARDIC AND HYPOTENSIVE. PLACED IN OBSERVATION FOR FURTHER EVALUATION MANAGEMENT AND TREATMENT. Review of Systems Review of Systems: DROWSINESS, WEAKNESS AFTER TAKING EXTRA DOSE OF HER DESCENDING Constitutional: Constitutional: Denies chills, Denies fever(s), Denies malaise, Denies night sweats and Denies poor appetite Eyes: Eyes: Denies change in vision ENT: Denies dysphagia and Denies odynophagia Cardiovascular: Cardiovascular: Denies chest pain, Denies radiating jaw, neck or arm pain and Denies palpitations Respiratory: Respiratory: Denies chest congestion and Denies cough Gastrointestinal: Gastrointestinal: Denies abdominal pain, Denies nausea and Denies vomiting Genitourinary: Genitourinary: Denies dysuria Musculoskeletal: Musculoskeletal: Denies arthralgias Integumentary/Breasts: Skin/Breast: Reports rash ( A SKIN FOLDS) Neurologic: Reports weakness Psychiatric: Psychiatric: Reports no additional psychiatric complaints and Reports as per HPI Endocrine: Endocrine: Denies fatigue, Denies flushing, Denies heat intolerance, Denies polyphagia, Denies polydipsia, Denies polyuria and Denies palpitations Hematologic/Lymphatic: Hematologic/Lymphatic: Reports no additional hematologic/lymphatic complaints and Reports as per HPI Allergic/Immunologic: Allergic/Immunologic: Reports no additional allergic/immunologic complaints and Reports as per HPI PMFSH Past Medical History Medical History (Updated 03/11/24 @ 20:40 by Garcia Canela III, DO) Depression HTN (hypertension) Hypothyroid Multiple sclerosis RLS (restless legs syndrome) Sleep apnea Surgical History Surgical History H/O section History of tonsillectomy Family History Family History Mother Lung cancer Father Lung cancer Social History Social History Smoking status: Never smoker Second hand tobacco smoke exposure: No Alcohol intake: never Substance use: never Do You Feel Safe in your Home?: Yes Lack of Transportation: No Lack of Food: Never True Current Housing: I Have Housing Concerned About Future Housing: No Difficulty Paying Gas/Electric Bills: No Difficulty Paying for Meds: No Currently Unemployed: No Education: Decline to Answer Difficulty w/ Childcare or Family Care: No Gender identity (if verbalized by the patient): Female Spiritual care concerns: No Agree to blood products: Yes Meds Home Medications and Allergies Home Medications Medication Instructions Recorded Confirmed Type furosemide 40 mg tablet 20 mg PO BID 01/27/20 03/11/24 History levothyroxine 200 mcg tablet 200 mcg PO DAILY 01/27/20 03/11/24 History pramipexole 1 mg tablet 1 mg PO USEASDIRECTD 01/27/20 03/11/24 History escitalopram oxalate 20 mg tablet 20 mg PO DAILY 07/21/21 03/11/24 History tizanidine 4 mg tablet 4 mg PO BID PRN muscle cramp 07/21/21 03/11/24 History trazodone 50 mg tablet 50 mg PO HS PRN Insomnia 07/22/21 03/11/24 History lisinopril 20 mg tablet 20 mg PO DAILY 03/11/24 03/11/24 History nystatin 100,000 unit/gram topical See Rx Instructions .Route .COMPLEX 03/11/24 03/11/24 History powder olanzapine 5 mg tablet 5 mg PO HS 03/11/24 03/11/24 History Allergies Allergy/AdvReac Type Severity Reaction Status Date / Time No Known Allergi
--- NOTE | 2024-03-11 22:19 | ADMIMU ---
2155: This patient, Tonia Squires, was admitted to IMU status, and placed in IMU Room 214-01. Patient/family oriented to hospital policies and general routines including ID bracelet, bed and alarms, visiting hours, pain management, procedures, bathroom and other care routines, personal items, smoking policy, room service/diet, and visiting hours. Valuables list has been completed. Information on how to activate the Rapid Response Team has been discussed. Patient/Family are encouraged to report perceived risks to care and to ask questions if they do not understand what they are told or what they should do.
--- NOTE | 2024-03-11 22:33 | PC.NURSE ---
Home CPAP verified by maintenance.
[2024-03-12] VITALS (25 sets, daily range): BP systolic 98–119; BP diastolic 35–77; PULSE 50–88; RESP 18–24; TEMP 33.3–37.1; O2SAT 90–96
--- NOTE | 2024-03-12 04:09 | PC.NURSE ---
0145: Dory from poison control called and cleared the patient.
[2024-03-12] MEDS: LEVOTHYROXINE SODIUM 100 MCG TABLET 200 MCG PO (06:22)
[2024-03-12 08:44] LABS: Hematocrit 35.9 % (37.0-47.0); Hemoglobin 10.6 g/dL (12.0-15.0); Immature Platelet Fraction Pct 7.1 % (0.9-11.2); Mean Corpuscular HGB Conc 29.5 g/dl (32-36); Mean Corpuscular Hemoglobin 30.8 pg (26-34); Mean Corpuscular Volume 104.4 fl (80-100); Mean Platelet Volume 11.2 fl (7.4-10.4); Platelet Count Result 85 k/mm3 (150-375); Red Blood Count 3.44 M/mm3 (4.2-5.4); White Blood Count 4.2 K/mm3 (4.5-10.0)
[2024-03-12 08:53] LABS: Anion Gap 7 mmol/L (4-12); Blood Urea Nitrogen 36 mg/dL (7-17); Carbon Dioxide 28 mmol/L (22-30); Chloride 106 mmol/L (98-107); Estimated CRCL calculation 46 ml/min; Estimated Glomerular Filt Rate 41; Glucose 92 mg/dL (65-110); Potassium 4.3 mmol/L (3.4-5.0); Sodium 141 mmol/L (137-145)
[2024-03-12] MEDS: ESCITALOPRAM OXALATE 10 MG TABLET 20 MG PO (08:58)
[2024-03-12 10:02] LABS: Folic Acid 15.5 ng/mL (2.76->20); Vitamin B12 > 1000.0 pg/mL (239-931)
--- NOTE | 2024-03-12 11:08 | PM.IMPN ---
Progress Note: A&P Assessment and Plan (1) Hypothermia: Code(s): T68.XXXA - Hypothermia, initial encounter Status: Acute Assessment and Plan: Patient this morning found to have hypoterhmia with rectal temp of 92 degrees. No symptoms of infection except cough. Will check UA and CXR. Contineu warming blanket and wean off as toelrated (2) Overdose: Code(s): T50.901A - Poisoning by unspecified drugs, medicaments and biological substances, accidental (unintentional), initial encounter Status: Acute Assessment and Plan: Patient presented due to letheragy and drowsiness. Presumably related to unintentional overdose of her tizanidine. Tizanidine held. Could be related to unrecognized infection as well. Or due to CO2 retention Check ABG (3) Atrial fibrillation: Code(s): I48.91 - Unspecified atrial fibrillation Status: Acute Assessment and Plan: Patient with chronic AFib. She is rate controlled. She is noted to be bradycardic at night. She is not on rate-controlling agents. She is also not on anticoagulation for unclear reasons (4) Diastolic dysfunction: Code(s): I51.89 - Other ill-defined heart diseases Status: Acute Assessment and Plan: Patient with diastolic dysfunction on scheduled lasix BP soft since admission. Will hold lasix for now (5) Chronic respiratory failure: Code(s): J96.10 - Chronic respiratory failure, unspecified whether with hypoxia or hypercapnia Status: Acute Assessment and Plan: Patient on supplemental O2 chronically at home at 2L. Continue to follow Check ABG (6) Secondary progressive multiple sclerosis: Code(s): G35 - Multiple sclerosis Status: Chronic Assessment and Plan: Patient with MS and is wheelchair bound. Holding tizanidine. (7) Sleep apnea: Code(s): G47.30 - Sleep apnea, unspecified Status: Chronic Assessment and Plan: Patient with ROGE and auto-CPAP resumed here. Continue the same (8) Thrombocytopenia: Code(s): D69.6 - Thrombocytopenia, unspecified Status: Acute Assessment and Plan: Plt count low but stable. TCP noted since 2019 at least. B12 level normal. Related to medications? (9) RLS (restless legs syndrome): Code(s): G25.81 - Restless legs syndrome Status: Chronic Assessment and Plan: Stable. Holding some home meds Plan DVT prophylaxis - SCDs Code status - full Subjective Date/time seen: 03/12/24 11:08 Interval history: 68yo female with MS, ROGE, AFib and HTN here for accidental overdose of tizanidine. No CP or SOB. No problems overnight. No feelings of suicidal or homicidal ideation. Noted to have low temperature and bairhugger added. No nausea, vomiting, diarrhea, dysuria, heamturia but with dry cough Exam Narrative: AF 93.7 108/52 74 18 95% ra Gen - NARD HEENT - cheeks are flushed Chest - CTA bilaterally, nml RR CV - irregularly irregular. Tele showing AFib with controlled rate and bradycardia overnight Abd - Soft, obese, NT Ext - trace pedal edema Neuro - Alert and oriented x3. Psych - Nml mood and affect Skin - Warm to touch and dry. pink erythema to bilateral shins (chronic per patient) Objective Data Vital Signs Vital Signs: Vital Signs - 24 hr 03/11/24 18:38 03/11/24 19:39 03/11/24 18:46 Temperature 97.8 F Pulse Rate 53 L 63 44 L Respiratory Rate 14 19 14 Blood Pressure 112/60 96/69 L Pulse Oximetry 97 98 90 Oxygen Delivery Room Air Oxygen Flow Rate 03/11/24 18:47 03/11/24 19:12 03/11/24 19:15 Temperature Pulse Rate 48 L 34 L 37 L Respiratory Rate 19 13 17 Blood Pressure 95/64 L Pulse Oximetry 91 99 99 Oxygen Delivery Oxygen Flow Rate 03/11/24 19:17 03/11/24 19:31 03/11/24 20:04 Temperature Pulse Rate 34 L 81 46 L Respiratory Rate 13 18 15 Blood Pressure 86/52 L 97/78 L Pulse Oximetry 9
[2024-03-12 14:04] LABS: Alveolar/Arterial O2 Gradient 35.1 mmHg; Base Excess ABG 4.1 mEq/l (+/-2.0); Device ROOM AIR; Fractional Inspired Oxygen 21 %; HCO3 ABG 28.2 mEq/l (22.0-26.0); Modified Allen's Test Pass; Oxygen Content ABG 13.8 %vol (16.0-22.0); Oxygen Saturation ABG 94.1 % (95.0-100.0); Oxyhemoglobin 92.4 % THb (90.0-100.0); PCO2 ABG 40.4 mmHg (35.0-45.0); PO2 ABG 66.3 mmHg (80.0-100.0); PO2 FiO2 Ratio Arterial Blood 3.16 %; Site Drawn RIGHT RADIAL; Total Hemoglobin 10.6 g/dL (12.0-18.0); pH ABG 7.462 (7.350-7.450)
[2024-03-12 16:38] LABS: Appearance Urine Clear (Clear); Bacteria Urine 3+ /hpf; Bilirubin Urine Negative (Negative); Blood Urine 3+ (Negative); Color Urine Yellow (Yellow); Glucose Urine UA Negative (Negative); Ketones Urine Negative (Negative); Leukocyte Esterase Ur 1+ LEU/UL (Negative); Need Manual Microscopic Reviewed; Nitrate Urine Negative (Negative); Non Pathogenic Casts 0-2; Protein Urine Negative (Negative); Specific Grav Ur 1.007 (1.001-1.035); Squamous Epithelial Cell Urine None Seen /hpf (Few); Urobilinogen Urine 0.2 mg/dL (<2.0); WBC Urine 0-5 /hpf (0-3)
[2024-03-12 16:48] LABS: Add Urine Microscopic? YES
[2024-03-12] MEDS: traZODone HCL 50 MG TABLET PO (21:06)
[2024-03-12] MEDS: OLANZapine 5 MG TABLET PO (21:06)
[2024-03-13] VITALS (11 sets, daily range): BP systolic 120–142; BP diastolic 50–68; PULSE 58–89; RESP 16–20; TEMP 36.1–36.6; O2SAT 93–96
[2024-03-13] MEDS: PRAMIPEXOLE 1 MG TABLET PO (01:21)
[2024-03-13 04:42] LABS: Eosinophils Absolute Auto 0.1 K/mm3 (0-0.3); Eosinophils Percent Auto 1.2 % (0-4.4); Hematocrit 31.1 % (37.0-47.0); Hemoglobin 9.2 g/dL (12.0-15.0); Immature Granulocyte Absolute 0.02 K/mm3 (0.00-0.031); Immature Granulocyte Percent A 0.3 % (0-0.5); Immature Platelet Fraction Pct 4.9 % (0.9-11.2); Lymphocytes Absolute Auto 0.68 K/mm3 (0.9-3.2); Lymphocytes Percent Auto 11.9 % (18.3-44.2); Mean Corpuscular HGB Conc 29.6 g/dl (32-36); Mean Corpuscular Hemoglobin 30.5 pg (26-34); Mean Platelet Volume 10.9 fl (7.4-10.4); Monocytes Absolute Auto 0.3 K/mm3 (0.1-0.6); Monocytes Percent Auto 5.6 % (2.6-8.5); Neutrophils Absolute Auto 4.6 K/mm3 (1.3-6.7); Platelet Count Result 106 k/mm3 (150-375); Red Blood Count 3.02 M/mm3 (4.2-5.4); Red Cell Distribution Width 15.8 % (11.5-14.5); White Blood Count 5.7 K/mm3 (4.5-10.0)
[2024-03-13 05:01] LABS: Anion Gap 7 mmol/L (4-12); Blood Urea Nitrogen 30 mg/dL (7-17); Calcium 9.2 mg/dL (8.4-10.2); Carbon Dioxide 28 mmol/L (22-30); Chloride 107 mmol/L (98-107); Estimated CRCL calculation 50 ml/min; Estimated Glomerular Filt Rate 45; Glucose 50 mg/dL (65-110); Potassium 4.3 mmol/L (3.4-5.0); Sodium 142 mmol/L (137-145)
[2024-03-13 05:13] LABS: Hypochromasia 1+; Microcytosis 1+ (NORMAL); Platelet Estimate Decreased (Adequate); Schistocytes None Seen
[2024-03-13] MEDS: LEVOTHYROXINE SODIUM 100 MCG TABLET 200 MCG PO (05:27)
[2024-03-13 05:36] LABS: Glucose Point of Care 59 mg/dl (65-105)
[2024-03-13 05:36] LABS: Glucose Point of Care 50 mg/dl (65-105)
[2024-03-13] MEDS: DEXTROSE 50% 25 GM/50 ML SYRINGE IV PUSH (06:02)
[2024-03-13 06:36] LABS: Glucose Point of Care 165 mg/dl (65-105)
[2024-03-13] MEDS: ESCITALOPRAM OXALATE 10 MG TABLET 20 MG PO (10:06)
[2024-03-13 11:02] LABS: Glucose Point of Care 79 mg/dl (65-105)
[2024-03-13 11:02] LABS: Glucose Point of Care 113 mg/dl (65-105)
--- NOTE | 2024-03-13 13:34 | PM.DS ---
DS: Admitting Diagnosis Discharge Date 03/13/24 Admitting Diagnosis Accidental overdose DS: Discharge Diagnosis Discharge Diagnosis (1) Hypothermia: Code(s): T68.XXXA - Hypothermia, initial encounter Status: Acute (2) Overdose: Code(s): T50.901A - Poisoning by unspecified drugs, medicaments and biological substances, accidental (unintentional), initial encounter Status: Acute (3) Atrial fibrillation: Code(s): I48.91 - Unspecified atrial fibrillation Status: Acute Assessment and Plan: Patient with chronic AFib. She is rate controlled. She is noted to be bradycardic at night. She is not on rate-controlling agents. She is also not on anticoagulation for unclear reasons (4) Diastolic dysfunction: Code(s): I51.89 - Other ill-defined heart diseases Status: Acute (5) Chronic respiratory failure: Code(s): J96.10 - Chronic respiratory failure, unspecified whether with hypoxia or hypercapnia Status: Acute (6) Secondary progressive multiple sclerosis: Code(s): G35 - Multiple sclerosis Status: Chronic (7) Sleep apnea: Code(s): G47.30 - Sleep apnea, unspecified Status: Chronic (8) Thrombocytopenia: Code(s): D69.6 - Thrombocytopenia, unspecified Status: Acute (9) RLS (restless legs syndrome): Code(s): G25.81 - Restless legs syndrome Status: Chronic DS: Summary Hospital Course Reason for hospitalization: 68yo female with MS, ROGE, AFib and HTN here for accidental overdose of tizanidine. Please see H&P for details. Hospital Course: Patient presented due to lethargy and drowsiness. Presumably related to unintentional overdose of her tizanidine. Tizanidine was held. No CO2 retention by ABG. Patient did develop hypothermia with rectal temp of 92 degrees here. Could be related to unrecognized infection but no symptoms of infection except cough. CXR was clear and UA was not consistent with UTI. Consider autonomic insufficiency due to her MS. Treated with warming blanket and easily weaned off. Patient with paroxysmal AFib.?She is noted to be mildly bradycardic at night. She is not on rate-controlling agents.? She is also not on anticoagulation. EKG showing sinus bradycardia with first degree AVB, borderline LAD and Rt BBB. Echo in 2021 showing pulmonary HTN and diastolic dysfunction. She is on scheduled lasix. BP was soft since admission and she is noting eating much. Lasix was held here. She did have low glucose in the 50's at times also felt related to her poor oral intake. Patient is on supplemental O2 chronically at home at 2L which we continued. Patient with MS and is wheelchair bound. Patient with ROGE and auto-CPAP resumed here. Plt count low but stable. TCP noted since 2019 at least. B12 level normal. She overall did well. Her at bedside states that the patient 'seems fine to me'. He dispenses her medications and will not give her extra medications again. Encouraged him to resume medications slowly at half doses and advance as needed to get to the lowest possible dose with the most benefits. This was discussed in details. He voices understanding. She overall did well and was able to be discharged home on 03/13/24 Status at Discharge Cognitive/behavioral status at discharge: stable Time Spent with Patient Time attestation: Total time spent providing and/or coordinating discharge services: 34 minutes Time spent: Greater than 30 minutes Specific discharge activities: family education Exam Narrative: AF 97.7 136/58 79 16 94% ra Gen - NARD Chest - lungs clear anteriorly and in the flanks. CV - RRR S1/S2. Tele showing sinus rhythm Abd - Soft, obese, NT Ext - trace pedal edema with wrinkling of the skin Psych - Nml mood and affect Skin - slight pink erythema to bilateral shins (chronic per patient) DS: Data Data Completed and Pending Labs on day of discharge: Labs from last 24
== END 2024-03-13 15:27 | disposition home or self-care (01) | DRG 918 ==
LOC: ANHED 20:40 → ANHIMU 21:24
PROVIDERS: Emergency Medicine; Admitting Provider Internal Medicine; Emergency Provider Emergency Medicine; PCP Family Medicine; Visit Provider Internal Medicine
DX: T42.8X1A Poisoning by antiparkinsonism drugs and other central muscle-tone depressants, accidental (unintentional), initial encounter (principal); Z68.42 Body mass index [BMI] 45.0-49.9, adult; J96.12 Chronic respiratory failure with hypercapnia; J96.11 Chronic respiratory failure with hypoxia; R68.0 Hypothermia, not associated with low environmental temperature; I48.0 Paroxysmal atrial fibrillation; G35 Multiple sclerosis; I51.89 Other ill-defined heart diseases; I45.10 Unspecified right bundle-branch block; I44.0 Atrioventricular block, first degree; D69.6 Thrombocytopenia, unspecified; G25.81 Restless legs syndrome; I27.20 Pulmonary hypertension, unspecified; E03.9 Hypothyroidism, unspecified; E66.01 Morbid (severe) obesity due to excess calories; F32.A Depression, unspecified; G47.33 Obstructive sleep apnea (adult) (pediatric); Z99.3 Dependence on wheelchair; Z99.81 Dependence on supplemental oxygen
CPT/HCPCS: 36415; 36600; 71045; 80048; 80053; 81001; 82607; 82746; 82805; 82948; 83735; 85025; 85027; 85055; 93005; 96361; 96374; 96376; 99285; A9270; G0378; J0461; J7030